=== PATIENT | female | born 1965 | race Caucasian/White ===

== ENCOUNTER → 2024-01-28 09:41 | Outpatient (CLI) | payer OTHER, SELFPAY ==
--- NOTE | 2024-01-28 10:10 | EKG_ITS ---
[facility] [address] [address] Test Date: 2024-01-28 Pat Name: Anayeli Paul Department: [facility] Room: Gender: Female Senior Portfolio Manager: MARIAH : 1965 Requested By: Order Number: [id number] Reading MD: Cosme Wilson MD Measurements Intervals [place] Rate: 76 P: 10 OR: 146 QRS: -4 QRSD: 124 T: 28 QT: 422 QTc: 474 Interpretive Statements Normal sinus rhythm Nonspecific intraventricular conduction delay Minimal voltage criteria for LVH, may be normal variant ( Khai product ) Electronically Signed On 01-28-2024 13:36:25 PDT by Cosme Wilson MD
[2024-01-28 11:20] LABS: Add Manual Diff / Slide Review NO; Basophils Absolute Auto 0 /uL (0-100); Basophils Percent Auto 0.7 % (0-2); Eosinophils Absolute Auto 100 /uL (0-450); Hematocrit 34.2 % (36-46); Hemoglobin 11.5 g/dL (12.0-16.0); Lymphocytes Absolute Auto 1100 /uL (1100-4500); Lymphocytes Percent Auto 16.1 % (25-40); Mean Corpuscular HGB Conc 33.7 % (30-36); Mean Corpuscular Hemoglobin 29.9 PG (26-34); Mean Corpuscular Volume 88.8 fL (80-100); Monocytes Absolute Auto 400 /uL (0-900); Monocytes Percent Auto 6.2 % (3-14); Neutrophils Absolute Auto 5300 /uL (1500-7000); Platelet Count 274 X10^3/uL (150-400); Red Blood Cell Count 3.85 X10^6/uL (4.0-5.2); Red Cell Distribution Width 13.5 % (11.6-14.8); White Blood Cell Count 7.1 X10^3/uL (4.5-11.0)
[2024-01-28 11:45] LABS: Hemoglobin A1C% w Est Avg Glu 6.7 % (4.0-6.0)
[2024-01-28 13:23] LABS: Albumin 3.8 g/dL (3.5-5.0); BUN Creatinine Ratio 16.7 (6-22); Blood Urea Nitrogen 24 mg/dL (7-17); Calcium 9.2 mg/dL (8.4-10.2); Carbon Dioxide 26 mmol/L (22-32); Chloride 103 mmol/L (98-107); Estimated Glomerular Filt Rate 42 mL/min (>60); Glucose 169 mg/dL (70-100); HEMOLYSIS < 15 (0-50); Potassium 5.2 mmol/L (3.4-5.1); Sodium 139 mmol/L (137-145)
[2024-01-28 16:12] LABS: Vitamin D 25 Hydroxy (D3) 14.2 ng/mL (30.0-100.0)
== END ==
PROVIDERS: Referring Provider Orthopaedic Surgery Adult Reconstructive Orthopaedic Surgery; Visit Provider Orthopaedic Surgery Adult Reconstructive Orthopaedic Surgery
DX: Z01.818 Encounter for other preprocedural examination (principal); E55.9 Vitamin D deficiency, unspecified; R77.0 Abnormality of albumin; R73.9 Hyperglycemia, unspecified; Z01.812 Encounter for preprocedural laboratory examination
CPT/HCPCS: 36415; 80048; 82040; 82306; 83036; 84134; 85025; 93005; 93010

== ENCOUNTER 2024-04-20 09:00 | Inpatient (IN) | payer OTHER, SELFPAY ==
[2024-04-11 11:55] VITALS: BMI 50.5
[2024-04-18] VITALS (16 sets, daily range): BP systolic 122–149; BP diastolic 45–72; PULSE 58–75; RESP 13–24; TEMP 36.3–37.6; O2SAT 93–100; BMI 50.5
--- NOTE | 2024-04-18 | DI.RAD.S_ITS ---
PROCEDURE: XR KNEE LT 1TO2V INDICATIONS: INNER OP TECHNIQUE: 2 view(s) of the knee acquired. COMPARISON: [facility], CR, XR KNEE LT 1TO2V, 04/18/2024, 16:59. FINDINGS: Bones: Patient is status post left knee joint arthroplasty. Stable appearance of the left distal and lateral femoral plate screw fixation hardware. Hardware components are in expected positions. Visualized bony structures are intact. Soft tissues: Overlying postoperative changes are noted. IMPRESSION: Expected post-operative appearance of left knee arthroplasty. Lateral distal femur plate and screw fixation appears stable without malfunction. Dictated by: Inocencio Robb M.D. on 04/19/2024 at 16:42 Approved by: Inocencio Robb M.D. on 04/19/2024 at 16:44
--- NOTE | 2024-04-18 07:38 | DI.RAD.S_ITS ---
PROCEDURE: XR KNEE LT 1TO2V INDICATIONS: TKA TECHNIQUE: 2 views of the knee were acquired. COMPARISON: None. FINDINGS: Bones: Intraoperative imaging submitted ORIF plate and screw fixation distal femur fracture with tibial plateau prosthesis, articulating surfaces in grossly normal alignment on these 2 intraoperative fluoroscopic views. Soft tissues: Grossly unremarkable IMPRESSION: ORIF changes as above Dictated by: Earnest Summers M.D. on 04/19/2024 at 8:16 Approved by: Earnest Summers M.D. on 04/19/2024 at 8:17
[2024-04-18] MEDS: MELOXICAM 7.5 MG TABLET 15 MG PO (12:24)
[2024-04-18] MEDS: ACETAMINOPHEN 325 MG TABLET 975 MG PO (12:24)
--- NOTE | 2024-04-18 12:38 | PM.PREOP ---
Pre-operative Note Interval Note History & Physical reviewed/Exam performed by Physician: Yes Changes to H&P: No
[2024-04-18] MEDS: CEFAZOLIN VIAL 3 GM in SODIUM CHLORIDE 0.9% 100 ML IV ×2 (13:59→17:12)
[2024-04-18] MEDS: TRANEXAMIC ACID 1,000 MG VIAL 1000 MG INJ ×2 (13:59→17:26)
--- NOTE | 2024-04-18 14:22 | SUR.OPER ---
Supine on padded OR bed. Pillow under head, arms secured on padded armboards <90 degree abduction. Safety belt across torso. Non-operative leg secured with tape over blanket over lower leg. Operative leg secured in Yuval. Foam padded brace at thigh of operative leg.
[2024-04-18] MEDS: ROPIVACAINE/EPI/CLONIDINE/KET 50 ML SYRINGE INJ (14:30)
[2024-04-18] MEDS: SODIUM CHLORIDE 0.9% 1,000 ML 84 ML IV (16:18)
[2024-04-18] MEDS: CEFAZOLIN 2 GM/100 ML PREMIX 100 ML IV (17:11)
[2024-04-18] MEDS: VANCOMYCIN 1,000 MG VIAL 1000 MG TOP (17:42)
[2024-04-18] MEDS: INSULIN REGULAR 100 UNIT/ML 3 ML VIAL IV (18:37)
--- NOTE | 2024-04-18 18:38 | PM.OP.1 ---
Operative Date/Time/Diagnoses Date of procedure: 04/18/24 Pre-op diagnosis: Left knee osteoarthritis Post-op diagnosis: same Procedure & Clinicians Procedure: Left total knee arthroplasty Placement of lateral distal femoral locking plate for prophylactic fixation for prevention of femoral fracture due to femoral notching in the anterior cortex Same procedure as scheduled: No Surgeon: Wilmar Blackman Electrical Wiring Lineman: Tracy Branham Anesthesia Type: General and Local Operative Notes Estimated Blood Loss (mL): 600 Procedure in detail: Left Gap-Balanced Hipolito Persona Medial-Congruent Primary Total Knee Arthroplasty Implants: Size 11 Cruciate Retaining Femoral Component Size F uncemented Tibial Component Size 10 Medial Congruent Polyethylene Insert Unresurfaced Patella Six hole lateral Alejandro and Nephew distal femoral locking plate Stainless steel Evos cerclage cable Procedure Summary: This 58-year-old female patient had severe left knee arthritis and a BMI of 50. I went through an extensive preoperative optimization period with her. She had had a hospitalization with an acute kidney injury this spring and prior to moving forward with surgery I ensured that her anemia and acute kidney injury had resolved. We discussed at length her elevated risk for complications related to her BMI. She understood these risks and wished to proceed with surgical management with that understanding. Intraoperatively today I sized her femur for a size 12, however this is the biggest size in our system and it was unavailable at this facility so I attempted to utilize a size 11. I thought that the cut would come out the anterior cortex appropriately however it notched significantly. I therefore placed a prophylactic plate with 3 screws above the notch and locking screws below. Her motion was very limited preoperatively and even with fairly aggressive cuts, +2 on the distal femur and +6 on the proximal tibia, she was still tight in extension and I used the smallest polyethylene insert available. Because of her high BMI and young age had intended to utilize uncemented fixation and still used uncemented fixation on the tibia despite the notch in her femur. Following placement of the plate in her femur I utilized cemented fixation and replaced the portion of the notch cut out of the anterior femur in order to use that as bone graft. That was held in place with a cerclage cable. I had already planned to utilize a incisional wound VAC and postoperative antibiotics given her high risk for wound breakdown given her body habitus. In addition to this I utilized intra wound vancomycin and placed nicko over the Dermabond to provide additional reinforcement. I will not modify her postoperative protocol given the notch cut and we will still have her aggressively work on range of motion as she had very severe stiffness preoperatively Procedure in Detail: This patient was seen preoperatively and evaluated for knee pain which was refractory to numerous nonoperative treatment modalities. Their pain correlated with radiographic changes demonstrating significant degeneration in the knee joint. The risks and benefits of continued nonoperative management versus operative management were discussed at length and all of the patient?s questions were answered. Additional educational materials providing further details beyond our discussion in clinic were provided via a publicly available patient education video which included the incidence of medical complications associated with total knee arthroplasty, reasons for revision following total knee arthroplasty, and patient satisfaction rates following total knee arthroplasty. That video can be accessed at [email or web address] . With this understanding of the risks inherent to the procedure, the patient elected to move forward with operative management. Following preoperative optimization, the patient was scheduled for surgery. The patient was met in the preoperative holding area the day of the procedure and all questions were answered. The patient?s nares were swabbed with betadine in order to decolonize them from MRSA. Informed consent was signed and the left limb was marked with indelible ink.? The patient was brought back to the operating room where anesthesia was induced. The patient was transferred to the operating table and all bony prominences were padded. The operative site was prepped and draped in the usual sterile fashion. A second prep stick was utilized following drape placement. The incision was marked corresponding to the medial aspect of the tibial tubercle and the patella. Ioban was wrapped circumferentially around the knee. Prior to incision, tranexamic acid and cefazolin were administered. Templating images were displayed. A timeout procedure was performed verifying the patient?s identity, medical comorbidities, allergies, relevant medications, anesthesia type and the surgical plan. All present were in agreement. The assistance of a physician bilingual executive assistant was required for positioning, room setup, soft tissue retraction and wound closure. Without this assistance, the procedure would have been significantly more challenging and time consuming.?? The tourniquet was inflated prior to incision. I made an anterior incision over the knee, dissected through the subcutaneous tissues and identified the lateral border of the VMO. Medial and lateral soft tissue flaps were developed. A medial parapatellar arthrotomy was performed ensuring that adequate capsular tissue would remain for closure at the conclusion of the procedure. The hip was brought into extension and the medial soft tissues were released off the joint line of the tibia. Tissue overlying the distal anterior femur was released to allow for later assessment for anterior notching but left in place. A portion of the retropatellar fat pad was excised while protecting the patellar tendon. The patella was everted. The patella was not resurfaced. Osteophytes were excised and a lateral facetectomy was performed. The patella was released from its everted position.?? I flexed the knee to 90 degrees and placed retractors to allow access to the notch. An opening reamer was used to gain access to the femoral canal and an intramedullary veronica was introduced into the canal. Diaphyseal fit was obtained in order to allow a distal femoral resection at 5 degrees relative to the anatomic axis, thereby aiming to achieve mechanical alignment of the eventual implant. A +2 resection was planned and assessed using an deloris wing. I then made the cut using a sagittal saw. This provided additional access to the femoral notch. The ACL and PCL were excised. Retractors were placed on the lateral and medial tibia. I hyperflexed the knee while externally rotating it to sublux the tibia anteriorly. I placed a PCL retractor posteriorly and used this to provide additional anterior subluxation. The remainder of the PCL root was released. An intramedullary reamer was used in the ACL footprint to provide access to the tibial canal. An extramedullary guide was positioned to allow a resection perpendicular to the anatomic and mechanical axes of the tibia, thereby aiming to achieve mechanical alignment of the eventual implant. A +4 resection off the medial tibia was planned and the tibial cutting jig was pinned in place. I evaluated the cut depth, varus-valgus alignment and slope of the planned tibial resection and deemed them satisfactory. I cut the tibia with a sagittal saw while using retractors to protect the MCL, patellar tendon, and posterolateral structures.? The knee was repositioned in extension and the Fuzion soft tissue balancing gauge was introduced. This demonstrated that there was equal tension in the medial and lateral compartments of the knee with the knee in full extension and no additional soft tissue releases were necessary. I was not able to achieve full extension however so I replaced the tibial cut block and cut an additional 2 mm of tibia. This was still tight however I noted there were extremely large osteophytes posteriorly on the femur and anticipated that this would further loosen up the extension gap to allow full extension. When 60 pounds of force was applied to the Fuzion device, the extension gap opened to 10 mm. I moved the knee into 90 degrees of flexion, and the Fuzion device was recalibrated by removing a 9 mm alysha to allow assessment of the flexion gap. The Fuzion was placed perpendicular to the resected surface of the tibia and the resected surface of the distal femur. Sixty pounds of traction was applied to match the tension of the extension gap. This externally rotated the femur to -3 degrees. Pins were placed in the 10 mm holes. The measured resection guide was placed over the pins to allow sizing. Appropriate sizing was determined and a 4-in-1 block was placed. This was double checked using the Fuzion device to ensure that it would open to an equal distance as the extension gap when the same amount of force was applied. The Fuzion block was also used to assess flexion gap symmetry. An deloris wing was used to ensure there would be no anterior notching. Retractors were placed to protect the soft tissues during resection. Captured cuts were performed with a sagittal saw for the anterior and posterior femur as well as the corresponding chamfers.? Trial components were placed and the construct was assessed. Range of motion was assessed by ensuring the knee could achieve full extension and assessing maximum passive knee flexion by elevating the femur and allowing the heel to passively fall towards the buttock. Gap symmetry was assessed by stressing the medial and lateral compartments in both extension and flexion. Laxity was assessed in both extension and flexion and the polyethylene trial was adjusted with shims as necessary. Patellar tracking was assessed with knee flexion. Once satisfied with the construct, I moved forward with implant insertion. Lug holes were drilled in the femur and the tibia was prepped ensuring appropriate sizing and rotation relative to the tibial tubercle.?? The bony ends were irrigated and cement was prepared. Portions of the anterior chamfer cut were utilized as cement restrictors in the femur and tibia where intramedullar rods had been utilized. Cement was placed on the entirety of the undersurface of both the tibial and femoral components. Cement was placed onto the dry tibia and pressurized into the cancellous bone. I impacted the tibial component into place. Cement was removed. The tibia was reduced underneath the femur and placed cement onto the dry surface of the resected femur. I placed the femoral component as well as the intended polyethylene trial. Cement was removed from around the femur. I brought the knee into extension and manually pressurized the construct by pushing on the heel while the cement dried. The knee was bathed in a dilute mixture of betadine and peroxide. A mixture of Ropivacaine, Epinephrine, Clonidine and Toradol was infiltrated throughout the soft tissues into structures including the VMO, patellar tendon, quadriceps tendon, MCL and femoral periosteum. A low adductor canal block was also performed using this mixture unless one had been placed preoperatively by anesthesia. The knee was copiously irrigated with pulse lavage. Once cement had been allowed to dry the knee was again trialed. Range of motion was assessed by ensuring the knee could achieve full extension and assessing maximum passive knee flexion by elevating the femur and allowing the heel to passively fall towards the buttock. Gap symmetry was assessed by stressing the medial and lateral compartments in both extension and flexion. Laxity was assessed in both extension and flexion and the polyethylene trial was adjusted with shims as necessary. Patellar tracking was assessed with knee flexion. The tourniquet was let down and the polyethylene trial was removed. I inspected the knee inspected for excess cement and any residual bleeding. Once hemostasis was achieved I inserted the final polyethylene and ensured appropriate engagement of the dovetail locking mechanism.?? The arthrotomy was closed with absorbable interrupted suture ensuring that this extended to the top of the arthrotomy. This was backed up with running barbed suture throughout the arthrotomy. The skin was closed with 2-0 and 3-0 sutures. Surgical glue was applied and a soft dressing was placed.?The sponge, instrument and needle counts were reported as being correct at the end of the case.??No obvious complications occurred. The patient was transferred from the operating table back to a stretcher. The patient emerged from anesthesia without difficulty and was taken to the PACU in a stable condition.? Plan for aftercare: Weightbearing as tolerated Aspirin 81 twice per day for DVT prophylaxis No NSAIDs given kidney issues Sliding scale insulin given diabetes Wound check with myself in 2 weeks for staple removal Cefadroxil 500 mg twice per day for periprosthetic joint infection prophylaxis Multimodal pain regimen with no IV opioids ordered Anticipate discharge home tomorrow Detailed postoperative instructions available at [email or web address]
--- NOTE | 2024-04-18 19:05 | SUR.PHASEI ---
Pt transferred to floor by Ernst PERALTA. Belongings delivered including walker, CPAP bag, on2 white bag and one personal bag.
[2024-04-18] MEDS: LACTATED RINGERS 1,000 ML 100 ML IV (19:07)
[2024-04-18] MEDS: OXYCODONE IR 5 MG TABLET PO (19:39)
[2024-04-18] MEDS: ACETAMINOPHEN 325 MG TABLET 650 MG PO (19:39)
[2024-04-18] MEDS: ATORVASTATIN 20 MG TABLET 80 MG PO (20:38)
[2024-04-18] MEDS: HYDRALAZINE 10 MG TABLET 20 MG PO (20:38)
[2024-04-18] MEDS: LOPERAMIDE 2 MG CAPSULE PO (20:40)
[2024-04-18] MEDS: DOCUSATE 100 MG CAPSULE PO (20:41)
[2024-04-18] MEDS: OXYBUTYNIN 5 MG TABLET PO (20:41)
[2024-04-18] MEDS: ASPIRIN EC 81 MG TABLET PO (20:41)
--- NOTE | 2024-04-18 21:20 | P.PN_ITS ---
Subjective Subjective Interval history: I came by to check on Anayeli postoperatively. I explained the notching in her anterior femur that occurred during the case in the actions I took to prevent it propagating into a fracture. I showed her her x-rays and pointed out the plate and screws as well as the cerclage cable that were placed in order to protect her bone. During my examination she was resting comfortably in no acute distress. She had intact sciatic nerve function and a well-perfused foot and a clean dressing. Her pain was well-controlled. * Weightbearing as tolerated * Aspirin DVT prophylaxis * Baseline diabetes medications and sliding scale * Cefadroxil 500 mg twice per day for periprosthetic joint infection prophylaxis * Anticipate mobilization and discharge home tomorrow * No NSAIDs ordered given her kidney issues Exam Vital Signs (past 8 hours): - 04/18/24 18:19 04/18/24 18:25 04/18/24 18:30 Temperature 99.6 F Pulse Rate 75 70 70 Respiratory Rate 15 13 14 Blood Pressure 132/66 126/61 133/72 Pulse Oximetry 93 95 96 Oxygen Delivery Method Room Air Nasal Cannula Nasal Cannula Oxygen Flow Rate 2 2 04/18/24 18:35 04/18/24 18:40 04/18/24 18:45 Temperature 98.6 F Pulse Rate 70 69 72 Respiratory Rate 16 16 18 Blood Pressure 139/57 L 135/56 L 122/67 Pulse Oximetry 96 96 96 Oxygen Delivery Method Nasal Cannula Nasal Cannula Nasal Cannula Oxygen Flow Rate 2 2 2 04/18/24 18:50 04/18/24 19:00 04/18/24 20:38 Temperature 97.4 F L Pulse Rate 68 66 Respiratory Rate 14 Blood Pressure 125/47 L 141/45 H Pulse Oximetry 94 Oxygen Delivery Method Nasal Cannula CPAP Oxygen Flow Rate 2 Oxygen Delivery Method Nasal Cannula,CPAP Oxygen Flow Rate 2 COUNTS INCLUDE 234 BEDS AT THE [facility] Medical History (Updated 04/11/24 @ 12:21 by Jacinda Kowalski RN) Recurrent UTI Stage 3b chronic kidney disease COVID-19 virus infection (02/2020) ADHD Bipolar 1 disorder Depression Easy bruisability Osteoarthritis Spinal stenosis History of tumor Arthritis Diabetes IBS (irritable bowel syndrome) HLD (hyperlipidemia) HTN (hypertension) NOHELIA on CPAP Surgical History (Updated 02/06/21 @ 13:23 by Jacinda Kowalski RN) History of bladder suspension procedure Hx of arthroscopy of right knee Hx of Achilles tendon repair Hx of repair of right rotator cuff Hx of repair of left rotator cuff History of hysterectomy Social History household members: spouse Smoking Status: Former smoker alcohol intake: former Assessment & Plan Time-Based Coding :: [TOTAL MINUTES] spent with patient and on the chart (including review of chart, obtaining history, exam, reviewing outside data, placing orders, documenting exam and treatment plan, and counseling patient) on [DATE]. Quality VTE Deep Vein Thrombosis/Pulmonary Embolism Present on Admission: No
[2024-04-18] MEDS: INSULIN GLARGINE 100 UNIT/ML 3ML PEN 45 UNIT SUBCUT (21:29)
[2024-04-18] MEDS: INSULIN LISPRO 100 UNIT/ML 3ML VIAL SUBCUT (21:29)
[2024-04-18] MEDS: OXYCODONE IR 10 MG TABLET PO (22:54)
[2024-04-19] MEDS: CEFAZOLIN VIAL 3 GM in SODIUM CHLORIDE 0.9% 100 ML IV ×2 (00:49→08:26)
--- NOTE | 2024-04-19 00:59 | PC.NURSE ---
head chef: Patient is AxOx4, VSS, SpO2 97% on RA. Wears CPAP at night. Pain is well controlled with ordered pain medications, ice pack placed. L knee covered with KARLO drsg & SWATHI wrap is CDI. CMS intact. 2 PA to BSC w/ FWW & gait belt. Voided 200cc @ midnight, purewick in place. Oriented to call-light, plan of care ongoing.
[2024-04-19 01:50] VITALS: BP 139/59; PULSE 65; TEMP 35.5; O2SAT 100
[2024-04-19] MEDS: OXYCODONE IR 10 MG TABLET PO ×6 (03:09→21:43)
[2024-04-19] MEDS: ACETAMINOPHEN 325 MG TABLET 650 MG PO ×3 (03:09→18:43)
[2024-04-19 04:56] LABS: Hematocrit 25.9 % (36-46); Hemoglobin 8.6 g/dL (12.0-16.0)
[2024-04-19 05:50] VITALS: BP 120/42; PULSE 66; RESP 20; TEMP 35.8; O2SAT 98
--- NOTE | 2024-04-19 07:51 | PM.PNPO.1 ---
Subjective Subjective Date Patient Seen: 04/19/24 Time Patient Seen: 07:51 Interval history: Knee pain is [id number]. No shortness of breath or chest pain. No nausea or vomiting. She was able to get up last night and use bathroom. will be home to assist her. Exam Vital Signs (past 8 hours): - 04/19/24 01:50 04/19/24 05:50 Temperature 96 F L 96.4 F L Pulse Rate 65 66 Respiratory Rate 20 Blood Pressure 139/59 L 120/42 L Pulse Oximetry 100 98 Oxygen Flow Rate 0 1.5 Fraction of Inspired Oxygen 28 SaO2/FiO2 Ratio 346 Oxygen Delivery Method Nasal Cannula Oxygen Flow Rate 1.5 Narrative Exam Narrative: 58-year-old female resting comfortably in bed in no apparent distress. Knee dressing is clean, dry and intact. Motor functions intact bilateral lower extremities. Sensation grossly intact to light touch bilateral lower extremities. Const General: cooperative and comfortable Nutritional Appearance: obese (BMI 50.5) Orientation: alert Resp Effort & Inspection: normal respiratory effort and able to speak in complete sentences Objective Labs 04/19/24 04:50 Labs: Laboratory Results - last 24 hr 04/19/24 04:50 Hgb 8.6 L Hct 25.9 L PFSH Medical History Recurrent UTI Stage 3b chronic kidney disease COVID-19 virus infection (02/2020) ADHD Bipolar 1 disorder Depression Easy bruisability Osteoarthritis Spinal stenosis History of tumor Arthritis Diabetes IBS (irritable bowel syndrome) HLD (hyperlipidemia) HTN (hypertension) NOHELIA on CPAP Surgical History History of bladder suspension procedure Hx of arthroscopy of right knee Hx of Achilles tendon repair Hx of repair of right rotator cuff Hx of repair of left rotator cuff History of hysterectomy Social History household members: spouse Smoking Status: Former smoker alcohol intake: former Assessment & Plan Post-op Postoperative Procedures: Procedures Operation Date: 04/18/24 13:45 Actual Procedure Side Surgeon p Total Knee Arthroplasty with distal femur ORIF Left Wilmar Blackman MD Postoperative day: 1 Postoperative status narrative: Postop anemia due to blood loss during surgery Postoperative plan narrative: Status post left total knee arthroplasty with placement of lateral distal femoral locking plate for prophylactic fixation for prevention of femoral fracture due to femoral notching in the anterior cortex. Aspirin 81 mg b.i.d. for DVT prophylaxis. Weightbearing as tolerated No NSAIDs given her kidney disease Sliding scale insulin Follow up 2 weeks outpatient clinic Cefadroxil 500 mg b.i.d. for periprosthetic joint infection prophylaxis Multimodal pain management Disposition possibly home today or tomorrow Quality VTE Deep Vein Thrombosis/Pulmonary Embolism Present on Admission: No
[2024-04-19 08:00] VITALS: BP 114/47; PULSE 68; RESP 20; TEMP 35.8; O2SAT 93
[2024-04-19] MEDS: INSULIN LISPRO 100 UNIT/ML 3ML VIAL 30 UNIT SUBCUT ×3 (08:13→17:10)
[2024-04-19] MEDS: INSULIN LISPRO 100 UNIT/ML 3ML VIAL SUBCUT (08:13)
[2024-04-19] MEDS: calcitrioL 0.25 MCG CAPSULE PO (08:14)
[2024-04-19] MEDS: ASPIRIN EC 81 MG TABLET PO ×2 (08:14→20:24)
[2024-04-19] MEDS: VIT C/E/ZN/COPPR/LUTEIN/ZEAXAN CAPSULE 2 CAP PO (08:15)
[2024-04-19] MEDS: FLUoxetine 20 MG CAPSULE 40 MG PO (08:15)
[2024-04-19] MEDS: DOCUSATE 100 MG CAPSULE PO ×2 (08:15→20:25)
[2024-04-19] MEDS: EZETIMIBE 10 MG TABLET PO (08:15)
[2024-04-19] MEDS: OXYBUTYNIN 5 MG TABLET PO ×3 (08:15→20:24)
[2024-04-19] MEDS: FUROSEMIDE 20 MG TABLET PO (08:25)
--- NOTE | 2024-04-19 09:30 | PT.IIE ---
Current Diagnoses Unilateral primary osteoarthritis, left knee (04/18/24) Surgery Performed Operation Date: 04/18/24 13:45 Actual Procedures p Total Knee Arthroplasty with distal femur ORIF(Left) - Wilmar Blackman MD Surgical History (Last Reviewed 04/19/24 @ 07:52 by Jim Gray PA-C) History of bladder suspension procedure History of hysterectomy Hx of Achilles tendon repair Hx of arthroscopy of right knee Hx of repair of left rotator cuff Hx of repair of right rotator cuff Medical History (Last Reviewed 04/19/24 @ 07:52 by Jim Gray PA-C) ADHD Arthritis Bipolar 1 disorder COVID-19 virus infection (02/2020) Depression Diabetes Easy bruisability History of tumor HLD (hyperlipidemia) HTN (hypertension) IBS (irritable bowel syndrome) NOHELIA on CPAP Osteoarthritis Recurrent UTI Spinal stenosis Stage 3b chronic kidney disease Physical Therapy Inpatient Evaluation/Re-Eval M1 PT/OT-IP Prior Functional Status Start: 04/19/24 12:47 Freq: NEEDED Status: Active Protocol: Document 04/19/24 09:30 AB (Rec: 04/19/24 13:04 AB [id number]) Medical Review Prior Functional Status Medical History Reviewed Yes Communication able to make needs known Mobility and Gait pt stated that she was modified independent with all mobilities and ambulation without AD indoors but occasionally uses a SPC depending on knee pain; uses SPC all the time for outdoor mobility; spouse stated that pt was needing assist for sit to stand from a regular chair but able to get up by herself when using her lift chair. pt has been using her lift chair for ~ months Activities of Daily Living and IADL's per OT note: Pt able to do but had lots of pain. Social History Household Members spouse Living Arrangements House Number of Floors (Floors) One Floor Number of Stairs To Enter/Railing? 2 platform steps to neter the house Home Environment Standard Height Toilet,Walk in Shower,Bidet Home Equipment Front Wheel Walker,Straight Cane,Shower Seat with Backrest ,Hand Held Shower,Retirement Assistant,Lift Recliner Additional Social History Comment Pt has an adjustable bed. M2 PT-IP Current Condition Start: 04/19/24 12:47 Freq: NEEDED Status: Active Protocol: Document 04/19/24 09:30 AB (Rec: 04/19/24 13:04 AB [id number]) Physical Therapy Current Condition Current Condition Evaluation Date 04/19/24 Treatment Diagnosis s/p L TKA; difficulty in walking Onset Date 04/18/24 M3 PT-IP Subjective Start: 04/19/24 12:47 Freq: NEEDED Status: Active Protocol: Document 04/19/24 09:30 AB (Rec: 04/19/24 13:04 [id number]) Subjective Physical Therapy Visit Type Type Initial Evaluation Visit Start Time 09:30 Visit Stop Time 10:15 Number of BUNCH BREAKER Visits 0 Physical Therapy Visit Comments Patient Comments agreeable to do PT Therapy Pain Assessment Pain When Pain Assessed At Rest Pain Present Pain Present Pain Reported Location Left Knee Intensity 2 Scale Used Numeric (0 - 10) Pain Management Techniques Apply Cold,Distraction, Elevation,Modification of Treatment,Re-positioning, Timing of Activity with Medications M4 PT-IP Mobility and Gait Start: 04/19/24 12:47 Freq: NEEDED Status: Active Protocol: Document 04/19/24 09:30 AB (Rec: 04/19/24 13:04 [id number]) PT-Transfer Assessment Sit to and From Stand Sit to and from Stand Maximum Assistance,1 Person Assistance,2 Person Assistance ,Use of Upper Extremities Equipment Transfer Assistive Device Gait Belt,Front Wheeled Walker Orthotic/Prosthetic Devices or Brace: No Transfers Transfer Destination Chair Transfer Technique Stand Step Pivot Transfer Ability Level of Assist Moderate Assistance,1 Person Assistance,Use of Upper Extremities Comments Mobility Comments pt sitting on bedside commode and OT in room. spouse in room as well. PT took over pt's care. obtained PLOF and home set up. BP sittin/83. pt completed sit to stand from bedside commode max A x 2 and max cues. able to take a few steps to transfer to chair using FWW mod A and cues ~ 2 ft. pt sat on chair. c/o lightheadedness. BP: 121/41. pt rested. BP rechecked after ~ 2 min: 117/50. educated pt on sit<>stand techniques. completed sit to stand from chair max Ax 1-2 and max cues. pt was only able to stand and has to sit back down due to c/o lightheadedness. BP checked seated: 91/40. positioned pt on the chair. LE elevated. BP rechecked: 111/49. nurse aware. set up caregiver training at ~ 130 pm today. Gait Assessment Gait Gait Assistance Required: Moderate Assistance Distance (Feet) 2 Able to Maintain Weight Bearing Status Yes During Gait Assistive Devices Assistive Device Gait Belt,Front Wheeled Walker Orthotic/Prosthetic Devices or Brace: No Gait Deviations General Gait Pattern Antalgic,Decreased Stride Length,Decreased Feet Clearance,Step-to Gait Factors Limiting Gait Function Factors Limiting Gait Function Decreased Activity Tolerance, Decreased Strength,Difficulty Following Directions,Limited Range of Motion,Pain,Poor Balance,Poor Safety Awareness PT-Balance Assessment Sitting Balance and Reactions Static Sitting Balance Ability Good Dynamic Sitting Balance Ability Fair Standing Balance and Reactions Static Standing Balance Ability Fair Dynamic Standing Balance Ability Fair Device Used FWW M5 PT-IP Objective Assessments Start: 04/19/24 12:47 Freq: NEEDED Status: Active Protocol: Document 04/19/24 09:30 AB (Rec: 04/19/24 13:04 [id number]) Orientation Orientation/Cognition Level of Alertness Alert Orientation Name,Place,Situation Language Function Ability No Deficits Noted Safety Awareness Decreased Safety Awareness Memory Description No Deficits Noted Strength Lower Extremity Strength Assessment Bilaterally Impaired Hip 3+/5 Knee 3+/5 Sensation Assessment Sensation Gross Sensation WNL Muscle Tone Muscle Tone WNL Yes M6 PT-IP Treatment Start: 04/19/24 12:47 Freq: NEEDED Status: Active Protocol: Document 04/19/24 09:30 AB (Rec: 04/19/24 13:04 [id number]) Physical Therapy Treatment Education Education Provided Precautions,Weight Bearing Status,Post-Op Packet,Safety M7 PT-IP Assessment and Plan Start: 04/19/24 12:47 Freq: NEEDED Status: Active Protocol: Document 04/19/24 09:30 AB (Rec: 04/19/24 13:04 [id number]) PT Summary Assessment and Plan Potential Rehabilitation Potential Fair Status of Condition at Evaluation Evolving Summary Impairments Pain,ROM,Strength,Balance, Coordination,Sensation,Tone, Cognition,Bed Mobility, Transfers,Gait,Activity Tolerance Assessment Summary pt is a 58 y/o F s/p L TKA POD 1. pt is WBAT on LLE. pt requiring max A x 1-2 for sit to stand and was only able to take a few steps to transfer using FWW mod A. c/o lightheadedness with BP decreased to 91/40 in standing from 120/83 in sitting. pt plans to go home with spouse to assist. caregiver training set up this afternoon at 130pm . will continue to assess progress. Goals Bed Mobility Goal Independent Transfer Goal Independent,Front Wheeled Walker Gait Goal Independent,Front Wheel Walker Gait Distance 150 Other Goals up/down 2 platform steps using FWW CGA Days to Meet Goals 5 Frequency of Treatment Frequency Of Treatment Twice a Day Treatment Plan Physical Therapy Treatment Plan Bed Mobility Training,Transfer Training,Gait Training, Therapeutic Exercise,Balance Retraining,Post Op Education, Discharge Planning,Hot or Cold Pack,Neuromuscular Re-ed, Coordination Retraining,Manual Therapy Weight Bearing Status Weight Bearing Status Weight Bear as Tolerated Allowed Weight Bearing Amount (enter % LLE WBAT or #) (%) Recommendations To Nursing Amount of Assist Needed 2 Person Assist Discharge Recommendations PT Discharge Recommendations Home with 24/11 Assist Available,Home Health Transportation Needs at Discharge Private Vehicle,Wheelchair/ Cabulance
--- NOTE | 2024-04-19 10:37 | OT.IP.EVAL ---
Current Diagnoses Unilateral primary osteoarthritis, left knee (04/18/24) Surgery Performed Operation Date: 04/18/24 13:45 Actual Procedures p Total Knee Arthroplasty with distal femur ORIF(Left) - Wilmar Blackman MD Past Medical History (Last Reviewed 04/19/24 @ 07:52 by Jim Gray PA-C) ADHD Arthritis Bipolar 1 disorder COVID-19 virus infection (02/2020) Depression Diabetes Easy bruisability History of tumor HLD (hyperlipidemia) HTN (hypertension) IBS (irritable bowel syndrome) NOHELIA on CPAP Osteoarthritis Recurrent UTI Spinal stenosis Stage 3b chronic kidney disease Surgical History (Last Reviewed 04/19/24 @ 07:52 by Jim Gray PA-C) History of bladder suspension procedure History of hysterectomy Hx of Achilles tendon repair Hx of arthroscopy of right knee Hx of repair of left rotator cuff Hx of repair of right rotator cuff Occupational Therapy Inpatient Evaluation/Re-Eval M1 PT/OT-IP Prior Functional Status Start: 04/19/24 10:21 Freq: NEEDED Status: Active Protocol: Document 04/19/24 10:22 [facility] (Rec: 04/19/24 10:37 [facility] [id number]) Medical Review Prior Functional Status Communication I Mobility and Gait Use of cane outdoors and at times inside. Activities of Daily Living and IADL's Pt able to do but had lots of pain. Social History Household Members spouse Living Arrangements House Number of Floors (Floors) One Floor Number of Stairs To Enter/Railing? 2 platform steps . Home Environment High Toilet,Walk in Shower Home Equipment Front Wheel Walker,Straight Cane,Shower Seat with Backrest ,Hand Held Shower,Project Director,Lift Recliner Additional Social History Comment Pt has an adjustable bed. M2 OT-IP Current Condition Start: 04/19/24 10:21 Freq: Status: Active Protocol: Document 04/19/24 10:22 [facility] (Rec: 04/19/24 10:37 [facility] [id number]) Occupational Therapy Current Condition Current Condition Evaluation Date 04/19/24 Treatment Diagnosis S/P L TKA Diagnosis Onset Date 04/18/24 M3 OT- IP Subjective and Pain Start: 04/19/24 10:21 Freq: Status: Active Protocol: Document 04/19/24 10:22 [facility] (Rec: 04/19/24 10:37 [facility] [id number]) OT- Subjective Occupational Therapy Visit Type Type Initial Evaluation Visit Start Time 09:00 Visit Stop Time 10:15 Notes Split treatment from [id number] and [id number]. Occupational Therapy Visit Comments Patient Comments Pt agreed to try to use the BSC. Patient/Caregiver Goals TO go home. OT Pain Assessment Pain When Pain Assessed At Rest Pain Present Pain Present Pain Reported Location Left Knee Intensity 4 Scale Used Numeric (0 - 10) M4 OT- IP ADL's Start: 04/19/24 10:21 Freq: Status: Active Protocol: Document 04/19/24 10:22 [facility] (Rec: 04/19/24 10:37 [facility] [id number]) OT [id number] General Evaluation Self-Feeding Ability Independent OT ADL-Grooming General Evaluation Grooming Ability Standby Assistance Areas Needing Assistance Retrieving/Set-up of Grooming Items Comments OT Grooming Comments While seated with set-up. OT ADL-Oral Care General Eval Oral Care Ability Independent Comments Oral Care Comments While seated. OT ADL-Dressing General Eval Lower Body Dressing Ability Maximum Assistance Areas Needing Assistance Socks Comments OT Dressing Comments Educated to dress the LLE first and take out last. Spoke on LB dressing equipment. Pt' s to assist. OT ADL-Toileting General Evaluation Toileting Ability Maximum Assistance Areas Needing Assistance Manage Clothing Comments OT Toileting Comments Pt not able to urinate, needing assist for clothing management needs. Spoke of wet ones, use of pads, toilet paper aid to help increase overall independence with needs. OT ADL-Bathing Comments OT Bathing Comments At this time pt states to just sponge off. Suggested prior to showering at home to practice if able to get into the shower with the FWW. M5 OT- IP IADL's Start: 04/19/24 10:21 Freq: Status: Active Protocol: Document 04/19/24 10:22 [facility] (Rec: 04/19/24 10:37 [facility] [id number]) OT-Instrumental Activities of Daily Living Deficits IADL Deficits Identified Deficits Home Safety Awareness Awareness of Need for Assistance at Home Good Awareness Ability to Problem Solve Emergency Able to Problem Solve Situations Medication Management Medication Management No Deficits Identified Money Management Money Management No Deficits Identified Meal Preparation Meal Preparation Comments to assist. Group Home Supervisor Group Home Supervisor Comments to assist. M6 OT- IP Functional Cognition Start: 04/19/24 10:21 Freq: Status: Active Protocol: Document 04/19/24 10:22 [facility] (Rec: 04/19/24 10:37 [facility] [id number]) Cognitive Factors Limiting Selfcare Function Cognitive Ability Level of Alertness Alert Patient Orientation Name,Age,Birthday,Month,Date, Year,Day of Week,Place, Situation Attention Span Ability Capable of Focused Attention, Capable of Sustained Attention Ability to Follow Commands Able to Follow One Step Commands Cognitive Comments Cognitive Assessment Comments Pt able to follow commands well for ADL and mobility needs. OT- Vision and Hearing OT- Hearing Assessment OT- Hearing Assessment WFL OT- Vision Assessment Visual Acuity Glasses For Reading Visual Attentiveness WFL Occular Pursuits WFL M7 OT- IP Mobility and Balance Start: 04/19/24 10:21 Freq: Status: Active Protocol: Document 04/19/24 10:22 [facility] (Rec: 04/19/24 10:37 [facility] [id number]) OT- Bed Mobility Assessment Supine to Sit Supine to Sit Assist Moderate Assistance,Head of Bed Elevated,Bedrails OT-Transfer Assessment Sit to and From Stand Sit to and from Stand Maximum Assistance,2 Person Assistance Transfers Transfer Ability Moderate Assistance,2 Person Assistance Technique Transfer Destination Bed,Bedside Commode Transfer Technique Stand Step Pivot Devices Transfer Assistive Devices Gait Belt,Front Wheeled Walker Comments Mobility Comments MODA to assist to help get her LLE to the edge of the bed and assist to get her trunk forwards. Pt considering sleeping in the lift chair initially.MAX AX 2 to stand to the FWW and MODA X2 to transfer to the BSC. Suggested pt get a BSC as much easier to come to stand when able to push her arms on the armrests to come to stand. Pt's FWW has rubber bottom and suggested pt get gliders/ sliders for safety. OT- Balance Assessment Sitting Balance and Reactions Static Sitting Balance Ability Good Dynamic Sitting Balance Ability Good Standing Balance and Reactions Static Standing Balance Ability Fair Dynamic Standing Balance Ability Poor M8 OT- IP Objective Assessments Start: 04/19/24 10:21 Freq: Status: Active Protocol: Document 04/19/24 10:22 [facility] (Rec: 04/19/24 10:37 [facility] [id number]) OT Gross Range of Motion Upper Extremity Range of Motion Assessment Within Functional Limits OT Strength Upper Extremity Strength Assessment Within Functional Limits M9 OT- IP Assessment and Plan Start: 04/19/24 10:21 Freq: Status: Active Protocol: Document 04/19/24 10:22 [facility] (Rec: 04/19/24 10:37 [facility] [id number]) OT Summary Assessment and Plan Potential Rehabilitation Potential Good Analytic Complexity at Evaluation Low Summary OT Impairments Pain,Range of Motion,Strength, Balance,Functional Mobility, Grooming,Dressing,Toileting, Bathing,Toilet Transfers, Shower Transfers,Activity Tolerance Progress Towards Goals Slow Progress due to Pain,Slow Progress due to Medical Issues,Slow Progress due to Activity Tolerance Assessment Summary Pt low complexity and main barriers are pain, difficulty with transitions and BP dropping and feeling weak 132/ 44 at EOB and after getting to the BSC 115/49. O2 on RA at 92-98% and needing to take a few deep breaths. Pt has a very supportive to assist at home when medically stable. Pt already has outpt PT set-up. Goals Self-Feeding Goal Independent Grooming Goal Independent Dressing Goal Minimal Assistance Toileting Goal Minimal Assistance Bathing Goal Minimal Assistance Toilet Transfer Goal Standby Assistance Shower Transfer Goal Minimal Assistance Patient/Caregiver Education Goal Caregiver Independent Assisting Patient Days to Meet Goals 7 Frequency of Treatment Other frequency 5x/week Treatment Plan OT Treatment Plan ADL Training,Functional Mobility,Patient/Family Education,Discharge Planning Discharge Recommendations OT Discharge Recommendations Home with 24/11 Assist Available,Outpatient - Home Equipment Needs BSC, gliders/sliders for FWW Transportation Needs at Discharge Private Vehicle
--- NOTE | 2024-04-19 13:08 | CM.DANOTE ---
Initial DCP Assessment Visit Reviewed EMR and team rounds for status updates. Met with pt/spouse at bedside to intoduce self and role, pt was found to be alert/oriented, sitting up in the recliner, expressing pain as well controlled, hoping to d/c home later this afternoon after working with PT on stairs. Pt lives modified independently at baseline with her spouse in their own home in [place]. Her spouse will also transport her home and provide for her care needs post-d/c. Pt is a 58 year-old F post-op day 1 from a L-knee total knee arthroplasty surgery. She has a hx of severe bilateral knee arthritis, as well as overall worsening health. She has a hx of depression, and due to her diabetes has developed kidney issues as a result of chronic NSAID use. She mobilizes with a walker and cane, and has already setup her OP PT for f/u. VETERINARY SURGEON assisted with providing resources for obtaining a bedside commode for home recovery needs. No further needs are identified at this time. Discharge Planning/Care Management CM Discharge Assessment Start: 04/19/24 13:05 Freq: Status: Active Protocol: Document 04/19/24 13:06 [facility] (Rec: 04/19/24 13:08 [facility] [id number]) Discharge Planning Assessment Assigned Naval Designer JAYDEN Crowley Advance Directives? No History Provided By Patient,Significant Other, Medical Record Has Patient been admitted in last 30 No days? Prior Living Arrangements House Household Members spouse Type of transporation used prior to Relies on Others admit Independent with ADL's No: modified independent with a cane or walker Needs Assistance With Home Chores / Shopping Caregiver for Another No DME Already Rented / Owned Elevated Toilet Seat,FWW / Walker,Cane Patient/Family Preference OP PT Therapy Discharge Plan Home Community Services Physical Therapy Transportation Arrangement Spouse Referrals Initiated None needed Whiteboard Updated in Patient Room with Yes name and ext. # of Naval Designer Review Status In Process Please Provide Date Initial DC 04/19/24 Assessment Was Performed Pre-Anesthesia Assessment Start: 04/11/24 11:55 Freq: Status: Active Protocol: Document 04/11/24 11:55 [facility] (Rec: 04/11/24 12:42 [facility] [id number]) Pre-Anesthesia Assessment PAC Comment Phone assess Patient Information Reviewed Via Phone Assessment Assessment Completed With Patient Diagnostic Results BMP/CMP,CBC,EKG Comment Labs/EKG @ [facility] 01/28/24 Primary Care Provider Haylee Galdamez Comment Pre-op 02/08/24 scanned and in surgery folder Seen Specialist in Last 12 Months Yes Specialist Seen Hand Fabric Cutter,Supervisor Photocomposition, Orthopedist Comment Endocrinology 12/18/22 and Nephrology 09/11/23 scanned and in surgery folder Primary Language Macedonian Chief Physical Therapist Required No Height 177.8 cm Weight 159.665 kg Body Mass Index (BMI) 50.5 Hearing Ability Normal Visual Assist Magnifying Glass Dentition Type Teeth, Natural Present Barriers to Learning None Other Aids Yes: CPAP Hx Anesthesia Reactions Yes: SOB, burning sensation in chest, couldn't speak s/p epidural w/2nd preg Hx Family Anesthesia Reaction No Hx Malignant Hyperthermia No Hx Blood Transfusions No Anesthesia Review Requested No Fashion Coordinator No alcohol intake former Alcohol Intake Frequency Other: Stopped when diagnosed with kidney disease Smoking Status Former smoker how long ago did patient quit smoking Quit 2008 Substance Use Type [#R] marijuana Comment Edibles for pain Pain Present Pain Reported Musculoskeletal Symptoms Abnormal Gait,Back Pain, Difficulty Walking,Joint Pain History of Falling (Recent or History of Yes ) Patient is completely paralyzed or No completely immobile Prosthesis or Orthotic Device Cane,Front Wheel Walker Mental Status Oriented to own ability Is patient on oxygen? No Does patient have RAMIREZ/SOB No Hx Sleep Apnea Yes CPAP/BIPAP use prescribed and used routinely Will Bring CPAP/BIPAP DOS Yes Currently Taking a Beta Terrell Yes: Metoprolol Can You Climb a Flight of Stairs Without No SOB Hx Chest Pain No Hx SOB No Hx Syncope or Dizziness No Anti-Coagulant Therapy No Has a Independent Driver No Cardiac Testing No Hx Pacemaker/ICD No Pacemaker Rep Required? No Cardiac Clearance Received No Diet Type At Home Regular Dysphagia No Gastrointestinal Symptoms Constipation,Cramping,Diarrhea Chronic UTI Frequent UTIs Bladder Pattern Frequency,Incontinent,Urgency Urinary Catheter Present No Hx Urinary Self Catheterization No Diabetes Yes: Pt checks blood sugar 4- 5x/day HgbA1C 6.7 Date 01/28/24 Patient No Lactating No Hx Drug Resistant Organism No Presence of External or Internal Medical No: Left shoulder, CPAP, right Devices achilles Received a COVID vaccine? Yes Marital Status Lives With spouse Current Living Arrangements House Number of Floors (Floors) One Floor Support System Spouse Does the Patient Have Assistance After Yes Surgery Patient Discharge Plan Description Return Home Comment Pt advised same day surgery per surgeon Feels Safe in Current Environment Yes Been Physically Hurt or Threatened By a No Person in Current Environment Do you have thoughts of harming yourself None or others? Are you currently considering suicide? No Do you have a plan to hurt yourself or No Plan others? Do You Have Any Spiritual Beliefs That No May Affect Your HC Choices? Do You Have Any Cultural Practices That No May Affect Your HC Choices? Comment [facility] Yazdanism Who Can We Speak to About Patient's Care Family, friends Identifying Code for Release of Patient Declines to issue Information Health Care Proxy/Next of Kin Kamron () Health Care Proxy Emergency Contact Name Linda (sister) Emergency Contact Advance Directives? No Power of Stove Mechanic No PAC Instructions Assistance for 24 hours post- op,Bring CPAP/BIPAP,Diabetes instructions,Do not shave/clip surgical site,Durable medical equipment,Medications to take /avoid,Nasal antibiotic,No ETOH/petroleum product on skin DOS,Ortho class,Pre-surgical wash,Sturdy shoes/comfortable clothes,Do not bring valuables and remove jewelry
--- NOTE | 2024-04-19 13:18 | P.DS_ITS ---
History of Present Illness History of Present Illness Date Patient Seen: 04/19/24 Time Patient Seen: 07:51 Chief complaint: Knee pain Narrative: See progress note Discharge Providers Provider Discharge Date: 04/19/24 Primary care physician: Haylee Galdamez MD Consults: 04/11/24 08:35 Consult to Anesthesiology Routine Comment: Consulting Provider: Anesthesiologist Reason for consultation: Regional block for post operative pain control Has provider been notified: No 04/18/24 07:38 Consult to Anesthesiology Routine Comment: Consulting Provider: Anesthesiologist Reason for consultation: Regional block for post operative pain control Has provider been notified: No 04/18/24 18:50 Consult to Discharge Planning Routine Comment: Consult to Occupational Therapy Evaluate & Treat Comment: Physician Instructions: Evaluate and treat Consult to Physical Therapy Evaluate & Treat Comment: Physician Instructions: postop TKA protocol Discharge provider: Jim Gray PA-C Summary Hospital Course Discharge Diagnosis: Left knee osteoarthritis Anemia due to acute blood loss during surgery Hospital Course: Operative Date/Time/Diagnoses Date of procedure: 04/18/24 Pre-op diagnosis: Left knee osteoarthritis Post-op diagnosis: same Procedure & Clinicians Procedure: Left total knee arthroplasty Placement of lateral distal femoral locking plate for prophylactic fixation for prevention of femoral fracture due to femoral notching in the anterior cortex Same procedure as scheduled: No Surgeon: Wilmar Blackman Heel Pricker: Tracy Branham Anesthesia Type: General and Local Operative Notes Estimated Blood Loss (mL): 600 Procedure in detail: Left Gap-Balanced Hipolito Persona Medial-Congruent Primary Total Knee Arthroplasty Implants: * Size 11 Cruciate Retaining Femoral Component * Size F uncemented Tibial Component * Size 10 Medial Congruent Polyethylene Insert * Unresurfaced Patella * Six hole lateral Alejandro [employer] Nephew distal femoral locking plate * Stainless steel Evos cerclage cable Patient admitted to the hospital for left total knee arthroplasty. Patient consented to the same. Patient underwent left total knee arthroplasty April 18, 2024 with placement of lateral distal femoral locking plate for prophylactic fixation for prevention of femoral fracture due to femoral notching in the anterior cortex. Patient will be weight-bearing as tolerated. Aspirin 81 mg b.i.d. for DVT prophylaxis. No NSAIDs given her kidney issues. Follow up outpatient orthopedic clinic in 2 weeks. Patient will remain on cefadroxil 500 mg b.i.d. for periprosthetic joint infection prophylaxis. Multimodal pain management. Patient will mobilize with physical therapy and discharged home today if safe for home environment. Status at Discharge Cognitive/behavioral status at discharge: at baseline, oriented Functional status at discharge: uses cane/walker Overall status at discharge: patient is progressing back to baseline Exam Vital Signs (past 8 hours): - 04/19/24 05:50 04/19/24 07:00 04/19/24 08:00 Temperature 96.4 F L 96.4 F L Pulse Rate 66 68 Respiratory Rate 20 20 Blood Pressure 120/42 L 114/47 L Pulse Oximetry 98 93 Oxygen Delivery Method Nasal Cannula CPAP Oxygen Flow Rate 1.5 0 Fraction of Inspired Oxygen 28 SaO2/FiO2 Ratio 346 Oxygen Delivery Method Nasal Cannula,CPAP Oxygen Flow Rate 0 Narrative Exam Narrative: See progress note Objective Labs 04/19/24 04:50 Labs: Laboratory Results - last 24 hr 04/19/24 04:50 Hgb 8.6 L Hct 25.9 L PFSH Medical History Recurrent UTI Stage 3b chronic kidney disease COVID-19 virus infection (02/2020) ADHD Bipolar 1 disorder Depression Easy bruisability Osteoarthritis Spinal stenosis History of tumor Arthritis Diabetes IBS (irritable bowel syndrome) HLD (hyperlipidemia) HTN (hypertension) NOHELIA on CPAP Surgical History History of bladder suspension procedure Hx of arthroscopy of right knee Hx of Achilles tendon repair Hx of repair of right rotator cuff Hx of repair of left rotator cuff History of hysterectomy Social History household members: spouse Smoking Status: Former smoker alcohol intake: former Discharge Assessment & Plan Assessment and Plan Assessment: Status post left total knee arthroplasty. Anemia due to acute blood loss during surgery Plan of Treatment: * Weightbearing as tolerated * Aspirin 81 twice per day for DVT prophylaxis * No NSAIDs given kidney issues * Sliding scale insulin given diabetes * Wound check with myself in 2 weeks for staple removal * Cefadroxil 500 mg twice per day for periprosthetic joint infection prophylaxis * Multimodal pain regimen with no IV opioids ordered * Anticipate discharge home tomorrow * Detailed postoperative instructions available at [email or web address] Discharge home today after physical therapy if safe for home environment. Discharge Plan Discharge Plan Patient Disposition: Home Discharge orders & Medications Discharge Orders: Discharge (Order); Ordered 04/19/24 Ordered By: Jim Gray Prescriptions: New acetaminophen 325 mg Tablet 650 mg PO Q6H Qty: 60 0RF polyethylene glycol 3350 17 gram Powder In Packet 17 gm PO DAILY PRN (Reason: Constipation) Qty: 10 0RF aspirin 81 mg Tablet,Delayed Release (Dr/Ec) 81 mg PO BID Qty: 60 0RF Continued fluoxetine 40 mg Capsule 40 mg PO QAM rosuvastatin [Crestor] 40 mg Tablet 40 mg PO BEDTIME PreserVision AREDS-2 250-90-40-1 mg Capsule 2 tab PO QAM hydralazine 10 mg Tablet 20 mg PO BID loperamide 2 mg Capsule 2 mg PO QID Rx Instructions: administer after each loose stool until symptoms controlled; do not exceed 8 mg per 24 hrs furosemide 20 mg Tablet 20 mg PO DAILY metoprolol succinate 25 mg Tablet Extended Release 24 Hr 50 mg PO DAILY oxybutynin chloride 5 mg Tablet 5 mg PO TID calcitriol 0.25 mcg Capsule 0.25 mcg PO DAILY insulin lispro 100 unit/mL Insulin Pen 30 unit SUBCUT TID ezetimibe [Zetia] 10 mg Tablet 10 mg PO DAILY aripiprazole [Abilify] 2 mg Tablet 2 mg PO BID insulin glargine 100 unit/mL (3 mL) Insulin Pen 45 unit SUBCUT BEDTIME Mounjaro 15 mg/0.5 mL Pen Injector 15 mg SUBCUT QWEEK Patient Comments: Injects on Thursday Follow up/Referrals: Haylee Galdamez MD [Primary Care Provider] - Wilmar Blackman MD [Physician] - 05/02/24 2:00 pm ([facility] office in [place]) Diet/Activity/Treatments Diet: Diet as Tolerated Activity: Weightbearing as tolerated. Walk frequently! Cold/Heat Therapy: Ice to knee as needed for pain. Skin/Wound/Dressing Care Report to your healthcare provider any signs of infection, such as:: chills, fever, night sweats, unusual drainage and unusual redness Dressing: May remove SWATHI wrap and cotton padding and shower on 04/20/2024. Leave dressing in place until follow up in office. No bathing or otherwise soaking incision. Call the office if the dressing becomes saturated inside. Visit Report/Discharge Packet Instructions: DI for Knee Replacement Stand Alone Forms: Patient Portal/API, Surgery Discharge Discharge Data Primary Care Provider: Haylee Galdamez Attending Provider: Wilmar Blackman VTE Deep Vein Thrombosis/Pulmonary Embolism Present on Admission: No
--- NOTE | 2024-04-19 13:35 | PT.IPTN ---
Current Diagnoses Unilateral primary osteoarthritis, left knee (04/18/24) Surgery Performed Operation Date: 04/18/24 13:45 Actual Procedures p Total Knee Arthroplasty with distal femur ORIF(Left) - Wilmar Blackman MD Physical Therapy Treatment Note M2 PT-IP Current Condition Start: 04/19/24 12:47 Freq: NEEDED Status: Active Protocol: Document 04/19/24 09:30 AB (Rec: 04/19/24 13:04 AB [id number]) Physical Therapy Current Condition Current Condition Evaluation Date 04/19/24 Treatment Diagnosis s/p L TKA; difficulty in walking Onset Date 04/18/24 M3 PT-IP Subjective Start: 04/19/24 12:47 Freq: NEEDED Status: Active Protocol: Document 04/19/24 13:35 AB (Rec: 04/19/24 14:37 AB [id number]) Subjective Physical Therapy Visit Type Type Treatment Note Visit Start Time 13:35 Visit Stop Time 14:15 Number of BUTTON SEWER HAND Visits 0 Physical Therapy Visit Comments Patient Comments agreeable to do PT Therapy Pain Assessment Pain When Pain Assessed At Rest Location Left Knee Intensity 2 Scale Used Numeric (0 - 10) M4 PT-IP Mobility and Gait Start: 04/19/24 12:47 Freq: NEEDED Status: Active Protocol: Document 04/19/24 13:35 AB (Rec: 04/19/24 14:37 AB [id number]) PT-Bed Mobility Assessment Sit to Supine Sit to Supine Standby Assistance PT-Transfer Assessment Sit to and From Stand Sit to and from Stand Maximum Assistance,1 Person Assistance,Use of Upper Extremities Equipment Transfer Assistive Device Gait Belt,Front Wheeled Walker Orthotic/Prosthetic Devices or Brace: No Transfers Transfer Destination Bed,Bedside Commode Transfer Technique Stand Step Pivot Transfer Ability Level of Assist Minimal Assistance,1 Person Assistance,Use of Upper Extremities Comments Mobility Comments pt sitting on chair. spouse in room. BP: 105/47. caregiver training conducted. educated spouse on how to use safety belt and how to assist pt. spouse was able to put safety belt on pt. pt completed sit to stand max A and max cues. able to stand using FWW for support. c/o lightheadedness needing to sit down. BP checked: 94/40. pt rested. BP checked again: 115 /47. completed sit to stand max A and max cues. requested to use the toilet. bedside commode positioned close to pt . pt was able to take steps using FWW ~ 2 ft min A. spouse assisted. pt needed assistance with brief management. BP after transfers: 133/40 completed sit to stand from the commode max A and max cues . pt requested to go back to bed and was able to take steps to the bed using fWW min A and cues ~ 2 ft. completed sit to supine SBA. positioned pt in bed. BP: 140/40. call light and table placed within reach. ice pack provided. nurse aware. Gait Assessment Gait Gait Assistance Required: Minimum Assistance Distance (Feet) 2 Able to Maintain Weight Bearing Status Yes During Gait Assistive Devices Assistive Device Gait Belt,Front Wheeled Walker Orthotic/Prosthetic Devices or Brace: No Gait Deviations General Gait Pattern Antalgic,Step-to Gait Factors Limiting Gait Function Factors Limiting Gait Function Decreased Activity Tolerance, Decreased Strength,Limited Range of Motion,Pain,Poor Balance,Poor Safety Awareness M5 PT-IP Objective Assessments Start: 04/19/24 12:47 Freq: NEEDED Status: Active Protocol: Document 04/19/24 09:30 AB (Rec: 04/19/24 13:04 AB [id number]) Orientation Orientation/Cognition Level of Alertness Alert Orientation Name,Place,Situation Language Function Ability No Deficits Noted Safety Awareness Decreased Safety Awareness Memory Description No Deficits Noted Strength Lower Extremity Strength Assessment Bilaterally Impaired Hip 3+/5 Knee 3+/5 Sensation Assessment Sensation Gross Sensation WNL Muscle Tone Muscle Tone WNL Yes M6 PT-IP Treatment Start: 04/19/24 12:47 Freq: NEEDED Status: Active Protocol: Document 04/19/24 13:35 AB (Rec: 04/19/24 14:37 AB [id number]) Physical Therapy Treatment Education Education Provided Safety M7 PT-IP Assessment and Plan Start: 04/19/24 12:47 Freq: NEEDED Status: Active Protocol: Document 04/19/24 13:35 AB (Rec: 04/19/24 14:37 AB [id number]) PT Summary Assessment and Plan Potential Rehabilitation Potential Fair Summary Impairments Pain,ROM,Strength,Balance, Coordination,Sensation,Tone, Cognition,Bed Mobility, Transfers,Gait,Activity Tolerance Progress Towards Goals Slow Progress due to Medical Issues,Slow Progress due to Activity Tolerance Assessment Summary pt continues to c/o lightheadedness with mobility and decrease in BP limiting activity tolerance. caregiver training initiated but further training needed. set up another caregiver training tomorrow at 9 am. will continue to assess. Goals Bed Mobility Goal Independent Transfer Goal Independent,Front Wheeled Walker Gait Goal Independent,Front Wheel Walker Gait Distance 150 Other Goals up/down 2 platform steps using FWW CGA Days to Meet Goals 5 Frequency of Treatment Frequency Of Treatment Twice a Day Treatment Plan Physical Therapy Treatment Plan Bed Mobility Training,Transfer Training,Gait Training, Therapeutic Exercise,Balance Retraining,Post Op Education, Discharge Planning,Hot or Cold Pack,Neuromuscular Re-ed, Coordination Retraining,Manual Therapy Other Recommendations and Next Treatment caregiver trainin04/20/24 @ [facility] 9 am Weight Bearing Status Weight Bearing Status Weight Bear as Tolerated Allowed Weight Bearing Amount (enter % LLE WBAT or #) (%) Recommendations To Nursing Amount of Assist Needed 2 Person Assist Discharge Recommendations PT Discharge Recommendations Home with 24/11 Assist Available,Home Health Transportation Needs at Discharge Private Vehicle,Wheelchair/ Cabulance
[2024-04-19 20:00] VITALS: BP 130/40; PULSE 74; RESP 20; TEMP 36.2; O2SAT 94
[2024-04-19 20:23] VITALS: BP 130/40; PULSE 74
[2024-04-19] MEDS: LOPERAMIDE 2 MG CAPSULE PO (20:24)
[2024-04-19] MEDS: ATORVASTATIN 20 MG TABLET 80 MG PO (20:24)
[2024-04-19] MEDS: INSULIN GLARGINE 100 UNIT/ML 3ML PEN 45 UNIT SUBCUT (20:48)
[2024-04-19] MEDS: SODIUM CHLORIDE 0.9% FLUSH 10 ML IV (20:50)
[2024-04-20] MEDS: OXYCODONE IR 10 MG TABLET PO ×6 (01:28→22:27)
[2024-04-20] MEDS: ACETAMINOPHEN 325 MG TABLET 650 MG PO ×4 (01:28→19:01)
[2024-04-20 08:00] VITALS: BP 125/49; PULSE 73; RESP 20; TEMP 36.1; O2SAT 94
--- NOTE | 2024-04-20 08:38 | PM.PNPO.1 ---
Subjective Subjective Date Patient Seen: 04/20/24 Time Patient Seen: 08:38 Interval history: Pt sitting up in bed, feeling well. Tells me she can't go home until her BP stabilizes and she's able to go up and down stairs - she has two steps to get into her house. Exam Vital Signs (past 8 hours): - 04/20/24 08:00 Temperature 97.0 F L Pulse Rate 73 Respiratory Rate 20 Blood Pressure 125/49 L Pulse Oximetry 94 Oxygen Flow Rate 2 Fraction of Inspired Oxygen 28 SaO2/FiO2 Ratio 346 Oxygen Delivery Method Nasal Cannula Oxygen Flow Rate 2 Narrative Exam Narrative: 5/5 strength in hip flexors, quadriceps, hamstrings, PF, DF, EHL on left. Sensation to light touch intact throughout LLE. Calf soft and compressible. SWATHI wrap CDI, KARLO functioning. Objective Labs 04/19/24 04:50 PFSH Medical History Recurrent UTI Stage 3b chronic kidney disease COVID-19 virus infection (02/2020) ADHD Bipolar 1 disorder Depression Easy bruisability Osteoarthritis Spinal stenosis History of tumor Arthritis Diabetes IBS (irritable bowel syndrome) HLD (hyperlipidemia) HTN (hypertension) NOHELIA on CPAP Surgical History History of bladder suspension procedure Hx of arthroscopy of right knee Hx of Achilles tendon repair Hx of repair of right rotator cuff Hx of repair of left rotator cuff History of hysterectomy Social History household members: spouse Smoking Status: Former smoker alcohol intake: former Assessment & Plan Post-op Assessment and plan (1) Total knee replacement status: Assessment and Plan narrative: Hydralazine held yesterday, will hold AM dose and reassess later today. Hopefully, she is feeling better and confident with steps and we can send her home this afternoon. Postoperative Procedures: Procedures Operation Date: 04/18/24 13:45 Actual Procedure Side Surgeon p Total Knee Arthroplasty with distal femur ORIF Left Wilmar Blackman MD Postoperative day: 2 Quality VTE Deep Vein Thrombosis/Pulmonary Embolism Present on Admission: No
[2024-04-20] MEDS: FLUoxetine 20 MG CAPSULE 40 MG PO (09:04)
[2024-04-20] MEDS: FUROSEMIDE 20 MG TABLET PO (09:04)
[2024-04-20] MEDS: VIT C/E/ZN/COPPR/LUTEIN/ZEAXAN CAPSULE 2 CAP PO (09:04)
[2024-04-20] MEDS: ASPIRIN EC 81 MG TABLET PO ×2 (09:04→20:47)
[2024-04-20] MEDS: OXYBUTYNIN 5 MG TABLET PO ×3 (09:04→20:47)
[2024-04-20] MEDS: EZETIMIBE 10 MG TABLET PO (09:05)
[2024-04-20] MEDS: calcitrioL 0.25 MCG CAPSULE PO (09:05)
[2024-04-20] MEDS: DOCUSATE 100 MG CAPSULE PO ×2 (09:05→20:47)
[2024-04-20 09:10] VITALS: BP 125/49; PULSE 73
[2024-04-20] MEDS: INSULIN LISPRO 100 UNIT/ML 3ML VIAL 30 UNIT SUBCUT ×3 (09:14→17:26)
[2024-04-20] MEDS: SODIUM CHLORIDE 0.9% FLUSH 10 ML IV ×2 (09:18→20:47)
--- NOTE | 2024-04-20 10:15 | PT.IPTN ---
Current Diagnoses Unilateral primary osteoarthritis, left knee (04/18/24) Presence of unspecified artificial knee joint (04/18/24) Surgery Performed Operation Date: 04/18/24 13:45 Actual Procedures p Total Knee Arthroplasty with distal femur ORIF(Left) - Wilmar Blackman MD Physical Therapy Treatment Note M2 PT-IP Current Condition Start: 04/19/24 12:47 Freq: NEEDED Status: Active Protocol: Document 04/19/24 09:30 AB (Rec: 04/19/24 13:04 AB [id number]) Physical Therapy Current Condition Current Condition Evaluation Date 04/19/24 Treatment Diagnosis s/p L TKA; difficulty in walking Onset Date 04/18/24 M3 PT-IP Subjective Start: 04/19/24 12:47 Freq: NEEDED Status: Active Protocol: Document 04/20/24 10:49 TS (Rec: 04/20/24 11:05 TS [id number]) Subjective Physical Therapy Visit Type Type Treatment Note Visit Start Time 10:15 Visit Stop Time 10:45 Number of QUARRY WORKER Visits 1 Physical Therapy Visit Comments Patient Comments Pt found resting in bed, she is agreeable to PT. Therapy Pain Assessment Pain When Pain Assessed At Rest Pain Present Pain Present Pain Reported M4 PT-IP Mobility and Gait Start: 04/19/24 12:47 Freq: NEEDED Status: Active Protocol: Document 04/20/24 10:49 TS (Rec: 04/20/24 11:05 TS [id number]) PT-Bed Mobility Assessment Supine to Sit Supine to Sit Minimal Assistance,1 Person Assistance Scooting Scooting to Edge of Bed Standby Assistance PT-Transfer Assessment Sit to and From Stand Sit to and from Stand Maximum Assistance,1 Person Assistance,2 Person Assistance ,Use of Upper Extremities Equipment Transfer Assistive Device Gait Belt,Front Wheeled Walker Orthotic/Prosthetic Devices or Brace: No Transfers Transfer Destination Chair Transfer Technique Stand Step Pivot Transfer Ability Level of Assist Maximum Assistance,1 Person Assistance,Use of Upper Extremities Comments Mobility Comments Pt performs ankle pumps, heel slides and quad sets prior to mobility. BP in supine 123/41. Supine to sit Conchis for LLE support from spouse. She scoots to EOB SBA with extra time to complete task. BP in sitting 141/54. STS from bed MaxA x1, spouse provides cues for STS technique. She ambulates in the room ~15'Conchis with FWW. Pt became lightheaded and required MaxA to sit on EOB. Pt agreeable to transfer to the chair. MaxA x1 for stand pivot to the chair. STS from the chair MaxA x2, BP in standing 107/63. Pt sat back in the chair, all needs met. Gait Assessment Gait Gait Assistance Required: Minimum Assistance Distance (Feet) 15 Able to Maintain Weight Bearing Status Yes During Gait Assistive Devices Assistive Device Gait Belt,Front Wheeled Walker Orthotic/Prosthetic Devices or Brace: No Gait Deviations General Gait Pattern Antalgic,Step-to Gait Factors Limiting Gait Function Factors Limiting Gait Function Decreased Activity Tolerance, Decreased Strength,Limited Range of Motion,Pain,Poor Balance,Poor Safety Awareness PT-Balance Assessment Sitting Balance and Reactions Static Sitting Balance Ability Good Dynamic Sitting Balance Ability Good Standing Balance and Reactions Static Standing Balance Ability Fair Dynamic Standing Balance Ability Poor Device Used FWW M5 PT-IP Objective Assessments Start: 04/19/24 12:47 Freq: NEEDED Status: Active Protocol: Document 04/19/24 09:30 AB (Rec: 04/19/24 13:04 AB [id number]) Orientation Orientation/Cognition Level of Alertness Alert Orientation Name,Place,Situation Language Function Ability No Deficits Noted Safety Awareness Decreased Safety Awareness Memory Description No Deficits Noted Strength Lower Extremity Strength Assessment Bilaterally Impaired Hip 3+/5 Knee 3+/5 Sensation Assessment Sensation Gross Sensation WNL Muscle Tone Muscle Tone WNL Yes M6 PT-IP Treatment Start: 04/19/24 12:47 Freq: NEEDED Status: Active Protocol: Document 04/20/24 10:49 TS (Rec: 04/20/24 11:05 TS [id number]) Physical Therapy Treatment Education Education Provided Safety M7 PT-IP Assessment and Plan Start: 04/19/24 12:47 Freq: NEEDED Status: Active Protocol: Document 04/20/24 10:49 TS (Rec: 04/20/24 11:05 TS [id number]) PT Summary Assessment and Plan Potential Rehabilitation Potential Fair Summary Impairments Pain,ROM,Strength,Balance, Coordination,Sensation,Tone, Cognition,Bed Mobility, Transfers,Gait,Activity Tolerance Progress Towards Goals Slow Progress due to Medical Issues,Slow Progress due to Activity Tolerance Assessment Summary Pt continues to be limited by ongoing hypotension and lightheadedness. She is progressed her gait to ~15' with FWW this session. She quickly becomes lightheaded and requires to sit. Her activity tolerance remains low . Pt is not safe to complete stairs at this time. PT is recommending home with 24/7 assist and HHPT. Goals Bed Mobility Goal Independent Transfer Goal Independent,Front Wheeled Walker Gait Goal Independent,Front Wheel Walker Gait Distance 150 Other Goals up/down 2 platform steps using FWW CGA Days to Meet Goals 5 Frequency of Treatment Frequency Of Treatment Twice a Day Treatment Plan Physical Therapy Treatment Plan Bed Mobility Training,Transfer Training,Gait Training, Therapeutic Exercise,Balance Retraining,Post Op Education, Discharge Planning,Hot or Cold Pack,Neuromuscular Re-ed, Coordination Retraining,Manual Therapy Weight Bearing Status Weight Bearing Status Weight Bear as Tolerated Allowed Weight Bearing Amount (enter % LLE WBAT or #) (%) Recommendations To Nursing Amount of Assist Needed 2 Person Assist Discharge Recommendations PT Discharge Recommendations Home with 24/7 Assist Available,Home Health Transportation Needs at Discharge Private Vehicle,Wheelchair/ Cabulance
--- NOTE | 2024-04-20 13:41 | PT.IPTN ---
Current Diagnoses Unilateral primary osteoarthritis, left knee (04/20/24) Presence of unspecified artificial knee joint (04/20/24) Surgery Performed Operation Date: 04/18/24 13:45 Actual Procedures p Total Knee Arthroplasty with distal femur ORIF(Left) - Wilmar Blackman MD Physical Therapy Treatment Note M2 PT-IP Current Condition Start: 04/19/24 12:47 Freq: NEEDED Status: Active Protocol: Document 04/19/24 09:30 AB (Rec: 04/19/24 13:04 AB [id number]) Physical Therapy Current Condition Current Condition Evaluation Date 04/19/24 Treatment Diagnosis s/p L TKA; difficulty in walking Onset Date 04/18/24 M3 PT-IP Subjective Start: 04/19/24 12:47 Freq: NEEDED Status: Active Protocol: Document 04/20/24 13:41 AB (Rec: 04/20/24 14:32 AB [id number]) Subjective Physical Therapy Visit Type Type Treatment Note Visit Start Time 13:41 Visit Stop Time 14:00 Number of LATHE OPERATOR CONTACT LENS Visits 0 Physical Therapy Visit Comments Patient Comments requesting to go back to bed Therapy Pain Assessment Pain When Pain Assessed At Rest Pain Present Pain Present Pain Reported Location Left Knee Intensity 9 Scale Used Numeric (0 - 10) Pain Management Techniques Apply Cold,Distraction,Re- positioning,Timing of Activity with Medications M4 PT-IP Mobility and Gait Start: 04/19/24 12:47 Freq: NEEDED Status: Active Protocol: Document 04/20/24 13:41 AB (Rec: 04/20/24 14:32 AB [id number]) PT-Bed Mobility Assessment Sit to Supine Sit to Supine Moderate Assistance,Maximum Assistance,1 Person Assistance ,Head of Bed Elevated PT-Transfer Assessment Sit to and From Stand Sit to and from Stand Maximum Assistance,1 Person Assistance,Use of Upper Extremities Equipment Transfer Assistive Device Gait Belt,Front Wheeled Walker Orthotic/Prosthetic Devices or Brace: Yes Transfers Transfer Destination Bed Transfer Technique Stand Step Pivot Transfer Ability Level of Assist Minimal Assistance,1 Person Assistance,Use of Upper Extremities Comments Mobility Comments pt using the bedside commode. NAC and nurse in room. PT assist pt with mobility. pt requesting to go back in bed. BP: 150/48 completed sit to stand from the bedside commode max A x 1 and max cues. NAC assisted with hygiene care and brief management. pt able to take steps to transfer ~ 2 ft to the bed using FWW min A and cues. BP sittin/47. pt refused further ambulation. c/o increase L knee pain. nurse aware. completed sit to supine mod to max A for elevating LLE to bed. positioned pt in bed. call light and table placed within reach. ice pack provided. Left pt with family in room. Gait Assessment Gait Gait Assistance Required: Minimum Assistance Distance (Feet) 2 Able to Maintain Weight Bearing Status Yes During Gait Assistive Devices Assistive Device Gait Belt,Front Wheeled Walker Orthotic/Prosthetic Devices or Brace: No Gait Deviations General Gait Pattern Antalgic,Decreased Stride Length,Decreased Feet Clearance Factors Limiting Gait Function Factors Limiting Gait Function Decreased Activity Tolerance, Decreased Strength,Difficulty Following Directions,Limited Range of Motion,Pain,Poor Balance,Poor Safety Awareness M5 PT-IP Objective Assessments Start: 04/19/24 12:47 Freq: NEEDED Status: Active Protocol: Document 04/19/24 09:30 AB (Rec: 04/19/24 13:04 AB [id number]) Orientation Orientation/Cognition Level of Alertness Alert Orientation Name,Place,Situation Language Function Ability No Deficits Noted Safety Awareness Decreased Safety Awareness Memory Description No Deficits Noted Strength Lower Extremity Strength Assessment Bilaterally Impaired Hip 3+/5 Knee 3+/5 Sensation Assessment Sensation Gross Sensation WNL Muscle Tone Muscle Tone WNL Yes M6 PT-IP Treatment Start: 04/19/24 12:47 Freq: NEEDED Status: Active Protocol: Document 04/20/24 13:41 AB (Rec: 04/20/24 14:32 AB [id number]) Physical Therapy Treatment Education Education Provided Safety M7 PT-IP Assessment and Plan Start: 04/19/24 12:47 Freq: NEEDED Status: Active Protocol: Document 04/20/24 13:41 AB (Rec: 04/20/24 14:32 AB [id number]) PT Summary Assessment and Plan Potential Rehabilitation Potential Fair Summary Impairments Pain,ROM,Strength,Balance, Coordination,Sensation,Tone, Cognition,Bed Mobility, Transfers,Gait,Activity Tolerance Progress Towards Goals Slow Progress due to Pain,Slow Progress due to Medical Issues,Slow Progress due to Activity Tolerance Assessment Summary pt continues to require max A for sit to stand and with decrease activity tolerance affecting level of assistance needed. will continue to assess progress. pt plans to go home and spouse to assist her. caregiver training was initiated yesterday but due to orthostatic hypotension, was not able to do much mobility. Caregiver training scheduled this morning for stair climbing training but pt stated that she got dizzy and lightheaded again and was not able to stairs. will continue to assess progress. Goals Bed Mobility Goal Independent Transfer Goal Independent,Front Wheeled Walker Gait Goal Independent,Front Wheel Walker Gait Distance 150 Other Goals up/down 2 platform steps using FWW CGA Days to Meet Goals 5 Frequency of Treatment Frequency Of Treatment Twice a Day Treatment Plan Physical Therapy Treatment Plan Bed Mobility Training,Transfer Training,Gait Training, Therapeutic Exercise,Balance Retraining,Post Op Education, Discharge Planning,Hot or Cold Pack,Neuromuscular Re-ed, Coordination Retraining,Manual Therapy Weight Bearing Status Weight Bearing Status Weight Bear as Tolerated Allowed Weight Bearing Amount (enter % LLE WBAT or #) (%) Recommendations To Nursing Amount of Assist Needed 2 Person Assist Discharge Recommendations PT Discharge Recommendations Home with 24/ Assist Available,Home Health Transportation Needs at Discharge Private Vehicle,Wheelchair/ Cabulance
--- NOTE | 2024-04-20 13:41 | PT.IPTN ---
Current Diagnoses Unilateral primary osteoarthritis, left knee (04/20/24) Presence of unspecified artificial knee joint (04/20/24) Surgery Performed Operation Date: 04/18/24 13:45 Actual Procedures p Total Knee Arthroplasty with distal femur ORIF(Left) - Wilmar Blackman MD Physical Therapy Treatment Note M2 PT-IP Current Condition Start: 04/19/24 12:47 Freq: NEEDED Status: Active Protocol: Document 04/19/24 09:30 AB (Rec: 04/19/24 13:04 AB [id number]) Physical Therapy Current Condition Current Condition Evaluation Date 04/19/24 Treatment Diagnosis s/p L TKA; difficulty in walking Onset Date 04/18/24 M3 PT-IP Subjective Start: 04/19/24 12:47 Freq: NEEDED Status: Active Protocol: Document 04/20/24 13:41 AB (Rec: 04/20/24 14:32 AB [id number]) Subjective Physical Therapy Visit Type Type Treatment Note Visit Start Time 13:41 Visit Stop Time 14:00 Number of GYRO MECHANIC Visits 0 Physical Therapy Visit Comments Patient Comments requesting to go back to bed Therapy Pain Assessment Pain When Pain Assessed At Rest Pain Present Pain Present Pain Reported Location Left Knee Intensity 9 Scale Used Numeric (0 - 10) Pain Management Techniques Apply Cold,Distraction,Re- positioning,Timing of Activity with Medications M4 PT-IP Mobility and Gait Start: 04/19/24 12:47 Freq: NEEDED Status: Active Protocol: Document 04/20/24 13:41 AB (Rec: 04/20/24 14:32 AB [id number]) PT-Bed Mobility Assessment Sit to Supine Sit to Supine Moderate Assistance,Maximum Assistance,1 Person Assistance ,Head of Bed Elevated PT-Transfer Assessment Sit to and From Stand Sit to and from Stand Maximum Assistance,1 Person Assistance,Use of Upper Extremities Equipment Transfer Assistive Device Gait Belt,Front Wheeled Walker Orthotic/Prosthetic Devices or Brace: Yes Transfers Transfer Destination Bed Transfer Technique Stand Step Pivot Transfer Ability Level of Assist Minimal Assistance,1 Person Assistance,Use of Upper Extremities Comments Mobility Comments pt using the bedside commode. NAC and nurse in room. PT assist pt with mobility. pt requesting to go back in bed. BP: 150/48 completed sit to stand from the bedside commode max A x 1 and max cues. NAC assisted with hygiene care and brief management. pt able to take steps to transfer ~ 2 ft to the bed using FWW min A and cues. BP sittin/47. pt refused further ambulation. c/o increase L knee pain. nurse aware. completed sit to supine mod to max A for elevating LLE to bed. positioned pt in bed. call light and table placed within reach. ice pack provided. Left pt with family in room. Gait Assessment Gait Gait Assistance Required: Minimum Assistance Distance (Feet) 2 Able to Maintain Weight Bearing Status Yes During Gait Assistive Devices Assistive Device Gait Belt,Front Wheeled Walker Orthotic/Prosthetic Devices or Brace: No Gait Deviations General Gait Pattern Antalgic,Decreased Stride Length,Decreased Feet Clearance Factors Limiting Gait Function Factors Limiting Gait Function Decreased Activity Tolerance, Decreased Strength,Difficulty Following Directions,Limited Range of Motion,Pain,Poor Balance,Poor Safety Awareness M5 PT-IP Objective Assessments Start: 04/19/24 12:47 Freq: NEEDED Status: Active Protocol: Document 04/19/24 09:30 AB (Rec: 04/19/24 13:04 AB [id number]) Orientation Orientation/Cognition Level of Alertness Alert Orientation Name,Place,Situation Language Function Ability No Deficits Noted Safety Awareness Decreased Safety Awareness Memory Description No Deficits Noted Strength Lower Extremity Strength Assessment Bilaterally Impaired Hip 3+/5 Knee 3+/5 Sensation Assessment Sensation Gross Sensation WNL Muscle Tone Muscle Tone WNL Yes M6 PT-IP Treatment Start: 04/19/24 12:47 Freq: NEEDED Status: Active Protocol: Document 04/20/24 13:41 AB (Rec: 04/20/24 14:32 AB [id number]) Physical Therapy Treatment Education Education Provided Safety M7 PT-IP Assessment and Plan Start: 04/19/24 12:47 Freq: NEEDED Status: Active Protocol: Document 04/20/24 13:41 AB (Rec: 04/20/24 14:32 AB [id number]) PT Summary Assessment and Plan Potential Rehabilitation Potential Fair Summary Impairments Pain,ROM,Strength,Balance, Coordination,Sensation,Tone, Cognition,Bed Mobility, Transfers,Gait,Activity Tolerance Progress Towards Goals Slow Progress due to Pain,Slow Progress due to Medical Issues,Slow Progress due to Activity Tolerance Assessment Summary pt continues to require max A for sit to stand and with decrease activity tolerance affecting level of assistance needed. will continue to assess progress. pt plans to go home and spouse to assist her. caregiver training was initiated yesterday but due to orthostatic hypotension, was not able to do much mobility. Attempted to do stair climbing training this morning but pt stated that she got dizzy and lightheaded again this morning and was able to stairs. will continue to assess progress. Goals Bed Mobility Goal Independent Transfer Goal Independent,Front Wheeled Walker Gait Goal Independent,Front Wheel Walker Gait Distance 150 Other Goals up/down 2 platform steps using FWW CGA Days to Meet Goals 5 Frequency of Treatment Frequency Of Treatment Twice a Day Treatment Plan Physical Therapy Treatment Plan Bed Mobility Training,Transfer Training,Gait Training, Therapeutic Exercise,Balance Retraining,Post Op Education, Discharge Planning,Hot or Cold Pack,Neuromuscular Re-ed, Coordination Retraining,Manual Therapy Weight Bearing Status Weight Bearing Status Weight Bear as Tolerated Allowed Weight Bearing Amount (enter % LLE WBAT or #) (%) Recommendations To Nursing Amount of Assist Needed 2 Person Assist Discharge Recommendations PT Discharge Recommendations Home with 24/ Assist Available,Home Health Transportation Needs at Discharge Private Vehicle,Wheelchair/ Cabulance
--- NOTE | 2024-04-20 15:33 | OT.IP.TRT ---
Current Diagnoses Unilateral primary osteoarthritis, left knee (04/20/24) Presence of unspecified artificial knee joint (04/20/24) Surgery Performed Operation Date: 04/18/24 13:45 Actual Procedures p Total Knee Arthroplasty with distal femur ORIF(Left) - Wilmar Blackman MD Occupational Therapy Treatment Note M2 OT-IP Current Condition Start: 04/19/24 10:21 Freq: Status: Active Protocol: Document 04/19/24 10:22 [facility] (Rec: 04/19/24 10:37 [facility] [id number]) Occupational Therapy Current Condition Current Condition Evaluation Date 04/19/24 Treatment Diagnosis S/P L TKA Diagnosis Onset Date 04/18/24 M3 OT- IP Subjective and Pain Start: 04/19/24 10:21 Freq: Status: Active Protocol: Document 04/20/24 15:33 [facility] (Rec: 04/20/24 15:42 [facility] [id number]) OT- Subjective Occupational Therapy Visit Type Type Treatment Note Visit Start Time 15:05 Visit Stop Time 15:35 Occupational Therapy Visit Comments Patient Comments Pt agreed to get up to use the bathroom. Pt's in the room to assist and do caregiver training. Patient/Caregiver Goals TO go home OT Pain Assessment Pain When Pain Assessed During Mobility Pain Present Pain Present Pain Reported Location Left Knee Pain Behaviors Facial Grimacing,Holding Area M4 OT- IP ADL's Start: 04/19/24 10:21 Freq: Status: Active Protocol: Document 04/20/24 15:33 [facility] (Rec: 04/20/24 15:42 [facility] [id number]) OT ADL-Dressing General Eval Lower Body Dressing Ability Maximum Assistance Areas Needing Assistance Underpants/Brief Comments OT Dressing Comments Educated to dress the LLE first and take out last. Assist to help get the pad in place. Educated for pt and to communicate well with each other therefore for pt to either focus on her balance or clothing needs. OT ADL-Toileting General Evaluation Toileting Ability Maximum Assistance Areas Needing Assistance Manage Clothing Comments OT Toileting Comments Pt able to walk to the toilet with BSC over the toilet. Pt's able to order a BSC for pt to use at home. M5 OT- IP IADL's Start: 04/19/24 10:21 Freq: Status: Active Protocol: Document 04/19/24 10:22 [facility] (Rec: 04/19/24 10:37 [facility] [id number]) OT-Instrumental Activities of Daily Living Deficits IADL Deficits Identified Deficits Home Safety Awareness Awareness of Need for Assistance at Home Good Awareness Ability to Problem Solve Emergency Able to Problem Solve Situations Medication Management Medication Management No Deficits Identified Money Management Money Management No Deficits Identified Meal Preparation Meal Preparation Comments to assist. Telephone Switchboard Operator Telephone Switchboard Operator Comments to assist. M6 OT- IP Functional Cognition Start: 04/19/24 10:21 Freq: Status: Active Protocol: Document 04/20/24 15:33 [facility] (Rec: 04/20/24 15:42 [facility] [id number]) Cognitive Factors Limiting Selfcare Function Cognitive Comments Cognitive Assessment Comments Pt needing encouragement and cues for safety. M7 OT- IP Mobility and Balance Start: 04/19/24 10:21 Freq: Status: Active Protocol: Document 04/20/24 15:33 [facility] (Rec: 04/20/24 15:42 [facility] [id number]) OT- Bed Mobility Assessment Supine to Sit Supine to Sit Assist Minimal Assistance Scooting Scooting to Edge of Bed Moderate Assistance,1 Person Assistance OT-Transfer Assessment Sit to and From Stand Sit to and from Stand Maximum Assistance,1 Person Assistance Transfers Transfer Ability Minimal Assistance,1 Person Assistance Technique Transfer Destination Bed,Bedside Commode,Chair Transfer Technique Stand Step Pivot Devices Transfer Assistive Devices Gait Belt,Front Wheeled Walker Comments Mobility Comments Pt's able to safely assist pt to stand to the FWW and walk into the bathroom to use the BSC over the toilet. BP no issues this PM . OT- Balance Assessment Sitting Balance and Reactions Static Sitting Balance Ability Good Dynamic Sitting Balance Ability Good Standing Balance and Reactions Static Standing Balance Ability Fair Dynamic Standing Balance Ability Fair M8 OT- IP Objective Assessments Start: 04/19/24 10:21 Freq: Status: Active Protocol: Document 04/19/24 10:22 [facility] (Rec: 04/19/24 10:37 [facility] [id number]) OT Gross Range of Motion Upper Extremity Range of Motion Assessment Within Functional Limits OT Strength Upper Extremity Strength Assessment Within Functional Limits M9 OT- IP Assessment and Plan Start: 04/19/24 10:21 Freq: Status: Active Protocol: Document 04/20/24 15:33 [facility] (Rec: 04/20/24 15:42 [facility] [id number]) OT Summary Assessment and Plan Potential Rehabilitation Potential Good Analytic Complexity at Evaluation Low Summary OT Impairments Pain,Range of Motion,Strength, Balance,Functional Mobility, Grooming,Dressing,Toileting, Bathing,Toilet Transfers, Shower Transfers,Activity Tolerance Progress Towards Goals Progressing Toward Goals Assessment Summary Pt able to get up with her and walk into the bathroom with the FWW and assist. Pt still main barrier is to get into the house. Pt's states has friends that work for the [employer] department that would be able to assist her into the house. At this time may be best to start with home health therapy versus outpt PT pending progress with the steps. Goals Self-Feeding Goal Independent Grooming Goal Independent Dressing Goal Minimal Assistance Toileting Goal Minimal Assistance Bathing Goal Minimal Assistance Toilet Transfer Goal Standby Assistance Shower Transfer Goal Minimal Assistance Patient/Caregiver Education Goal Caregiver Independent Assisting Patient Days to Meet Goals 7 Frequency of Treatment Other frequency 5x/week Treatment Plan OT Treatment Plan ADL Training,Functional Mobility,Patient/Family Education,Discharge Planning Discharge Recommendations OT Discharge Recommendations Home with / Assist Available,Home Health, Outpatient PT Home Equipment Needs BSC, gliders/sliders for FWW Transportation Needs at Discharge Private Vehicle
[2024-04-20 20:00] VITALS: BP 151/56; PULSE 80; RESP 16; TEMP 36.4; O2SAT 92
[2024-04-20] MEDS: ATORVASTATIN 20 MG TABLET 80 MG PO (20:47)
[2024-04-20] MEDS: LOPERAMIDE 2 MG CAPSULE PO (20:47)
[2024-04-20] MEDS: INSULIN LISPRO 100 UNIT/ML 3ML VIAL SUBCUT (21:17)
[2024-04-20] MEDS: INSULIN GLARGINE 100 UNIT/ML 3ML PEN 45 UNIT SUBCUT (21:17)
[2024-04-21] MEDS: OXYCODONE IR 10 MG TABLET PO ×3 (01:09→23:11)
[2024-04-21] MEDS: ACETAMINOPHEN 325 MG TABLET 650 MG PO ×4 (01:10→18:31)
--- NOTE | 2024-04-21 07:49 | PM.PNPO.1 ---
Subjective Subjective Date Patient Seen: 04/21/24 Time Patient Seen: 07:50 Interval history: Patient's pain is [id number]. She denies any nausea or vomiting. No shortness of breath or chest pain. She states she does feel a little lightheaded sitting in the bedside chair. Yesterday she was hypotensive working with physical therapy but is feeling better this morning. Exam Vital Signs (past 8 hours): Fraction of Inspired Oxygen 28 SaO2/FiO2 Ratio 346 Oxygen Delivery Method Nasal Cannula Oxygen Flow Rate 0 Narrative Exam Narrative: 58-year-old female resting comfortably in bedside chair in no apparent distress. Rayo dressing is on and functioning. Scant drainage noted, otherwise intact. Motor functions intact bilateral lower extremities. Sensation grossly intact to light touch bilateral lower extremities. Const General: cooperative and comfortable Nutritional Appearance: obese (BMI 50.5) Orientation: alert Resp Effort & Inspection: normal respiratory effort and able to speak in complete sentences Objective Labs 04/19/24 04:50 PFSH Medical History Recurrent UTI Stage 3b chronic kidney disease COVID-19 virus infection (02/2020) ADHD Bipolar 1 disorder Depression Easy bruisability Osteoarthritis Spinal stenosis History of tumor Arthritis Diabetes IBS (irritable bowel syndrome) HLD (hyperlipidemia) HTN (hypertension) NOHELIA on CPAP Surgical History History of bladder suspension procedure Hx of arthroscopy of right knee Hx of Achilles tendon repair Hx of repair of right rotator cuff Hx of repair of left rotator cuff History of hysterectomy Social History household members: spouse Smoking Status: Former smoker alcohol intake: former Assessment & Plan Post-op Postoperative Procedures: Procedures Operation Date: 04/18/24 13:45 Actual Procedure Side Surgeon p Total Knee Arthroplasty with distal femur ORIF Left Wilmar Blackman MD Postoperative day: 3 Postoperative status narrative: Status post left total knee arthroplasty with distal femur ORIF Hypotension Anemia due to acute blood loss during surgery Postoperative plan narrative: Mobilize with physical therapy, weight-bearing as tolerated Aspirin 81 mg b.i.d. for DVT prophylaxis Sliding scale insulin Cefadroxil 500 mg b.i.d. for periprosthetic joint infection prophylaxis Multimodal pain management Repeat H&H today Disposition, possible home today with home health PT Quality VTE Deep Vein Thrombosis/Pulmonary Embolism Present on Admission: No
[2024-04-21 08:00] VITALS: BP 113/46; PULSE 75; RESP 16; TEMP 36.5; O2SAT 93
[2024-04-21 08:28] LABS: Hematocrit 22.1 % (36-46); Hemoglobin 7.4 g/dL (12.0-16.0)
[2024-04-21] MEDS: EZETIMIBE 10 MG TABLET PO (08:35)
[2024-04-21] MEDS: FLUoxetine 20 MG CAPSULE 40 MG PO (08:35)
[2024-04-21] MEDS: LOPERAMIDE 2 MG CAPSULE PO (08:36)
[2024-04-21] MEDS: calcitrioL 0.25 MCG CAPSULE PO (08:36)
[2024-04-21] MEDS: VIT C/E/ZN/COPPR/LUTEIN/ZEAXAN CAPSULE 2 CAP PO (08:36)
[2024-04-21] MEDS: ASPIRIN EC 81 MG TABLET PO ×2 (08:36→20:46)
[2024-04-21] MEDS: DOCUSATE 100 MG CAPSULE PO ×2 (08:36→20:45)
[2024-04-21] MEDS: OXYBUTYNIN 5 MG TABLET PO ×3 (08:36→20:45)
[2024-04-21] MEDS: INSULIN LISPRO 100 UNIT/ML 3ML VIAL 30 UNIT SUBCUT ×3 (08:38→17:10)
[2024-04-21] MEDS: INSULIN LISPRO 100 UNIT/ML 3ML VIAL SUBCUT ×3 (08:38→17:11)
--- NOTE | 2024-04-21 09:08 | PT.IPTN ---
Current Diagnoses Unilateral primary osteoarthritis, left knee (04/20/24) Presence of unspecified artificial knee joint (04/20/24) Surgery Performed Operation Date: 04/18/24 13:45 Actual Procedures p Total Knee Arthroplasty with distal femur ORIF(Left) - Wilmar Blackman MD Physical Therapy Treatment Note M2 PT-IP Current Condition Start: 04/19/24 12:47 Freq: NEEDED Status: Active Protocol: Document 04/19/24 09:30 AB (Rec: 04/19/24 13:04 AB [id number]) Physical Therapy Current Condition Current Condition Evaluation Date 04/19/24 Treatment Diagnosis s/p L TKA; difficulty in walking Onset Date 04/18/24 M3 PT-IP Subjective Start: 04/19/24 12:47 Freq: NEEDED Status: Active Protocol: Document 04/21/24 09:44 TS (Rec: 04/21/24 10:05 TS [id number]) Subjective Physical Therapy Visit Type Type Treatment Note Visit Start Time 09:08 Visit Stop Time 09:43 Number of UNIVERSITY CONTROLLER Visits 1 Physical Therapy Visit Comments Patient Comments Pt found resting in the chair, she is agreeable to PT. Therapy Pain Assessment Pain When Pain Assessed At Rest Pain Present Pain Present Pain Reported M4 PT-IP Mobility and Gait Start: 04/19/24 12:47 Freq: NEEDED Status: Active Protocol: Document 04/21/24 09:44 TS (Rec: 04/21/24 10:05 TS [id number]) PT-Transfer Assessment Sit to and From Stand Sit to and from Stand Maximum Assistance,1 Person Assistance,Use of Upper Extremities Equipment Transfer Assistive Device Gait Belt,Front Wheeled Walker Orthotic/Prosthetic Devices or Brace: No Comments Mobility Comments Bp in sitting 110/50. STS with FWW MaxA x1, pt demonstrates good recall of technique. She ambulates into the restroom ~ 10' Conchis, pt is incontinent. STS from the toilet MaxA x1. Pt ambulates another ~10' back to the bed. Pt agrees to try stairs. STS from the bed MaxA. She performs step x1 with MaxA x2, pt has difficulty completing step, requires assist to bring RLE to ground. Pt is lightheaded and fatigued, is unable to attempt second step. Chair was brought behind pt. Pt was left in the chair, all needs met. Gait Assessment Gait Gait Assistance Required: Minimum Assistance Distance (Feet) 20 Able to Maintain Weight Bearing Status Yes During Gait Assistive Devices Assistive Device Gait Belt,Front Wheeled Walker Orthotic/Prosthetic Devices or Brace: No Gait Deviations General Gait Pattern Antalgic,Decreased Stride Length,Decreased Feet Clearance Factors Limiting Gait Function Factors Limiting Gait Function Decreased Activity Tolerance, Decreased Strength,Difficulty Following Directions,Limited Range of Motion,Pain,Poor Balance,Poor Safety Awareness Stair Climbing Assessment Evaluation Level of Assist On Stairs Maximal Assistance,2 Person Assistance Devices Stair Climbing Assistive Devices Front Wheel Walker Technique/Endurance Stair Climbing Direction Ascend and Descend Stair Climbing Technique Step to Step Number of Steps Climbed 1 PT-Balance Assessment Sitting Balance and Reactions Static Sitting Balance Ability Good Dynamic Sitting Balance Ability Good Standing Balance and Reactions Static Standing Balance Ability Fair Dynamic Standing Balance Ability Poor Device Used FWW M5 PT-IP Objective Assessments Start: 04/19/24 12:47 Freq: NEEDED Status: Active Protocol: Document 04/19/24 09:30 AB (Rec: 04/19/24 13:04 AB [id number]) Orientation Orientation/Cognition Level of Alertness Alert Orientation Name,Place,Situation Language Function Ability No Deficits Noted Safety Awareness Decreased Safety Awareness Memory Description No Deficits Noted Strength Lower Extremity Strength Assessment Bilaterally Impaired Hip 3+/5 Knee 3+/5 Sensation Assessment Sensation Gross Sensation WNL Muscle Tone Muscle Tone WNL Yes M6 PT-IP Treatment Start: 04/19/24 12:47 Freq: NEEDED Status: Active Protocol: Document 04/21/24 09:44 TS (Rec: 04/21/24 10:05 TS [id number]) Physical Therapy Treatment Education Education Provided Safety M7 PT-IP Assessment and Plan Start: 04/19/24 12:47 Freq: NEEDED Status: Active Protocol: Document 04/21/24 09:44 TS (Rec: 04/21/24 10:05 TS [id number]) PT Summary Assessment and Plan Potential Rehabilitation Potential Fair Summary Impairments Pain,ROM,Strength,Balance, Coordination,Sensation,Tone, Cognition,Bed Mobility, Transfers,Gait,Activity Tolerance Progress Towards Goals Slow Progress due to Pain,Slow Progress due to Medical Issues,Slow Progress due to Activity Tolerance Assessment Summary Pt continues to require MaxA for STS and assistance with gait. She did progress her gait to ~2x10' with use of FWW . She performed steps x1 with FWW and required MaxA x2 to complete. Pt continues to be lightheaded and weakness, was not able to complete stairs x2 . PT is recommending home vs SNF. Unclear if pt will be able to complete steps to get into the house. If she were to go home she may need a stretcher to get in the house. Pt would benefit from SNF to improve strength and functional mobility before d/c home. Goals Bed Mobility Goal Independent Transfer Goal Independent,Front Wheeled Walker Gait Goal Independent,Front Wheel Walker Gait Distance 150 Other Goals up/down 2 platform steps using FWW CGA Days to Meet Goals 5 Frequency of Treatment Frequency Of Treatment Twice a Day Treatment Plan Physical Therapy Treatment Plan Bed Mobility Training,Transfer Training,Gait Training, Therapeutic Exercise,Balance Retraining,Post Op Education, Discharge Planning,Hot or Cold Pack,Neuromuscular Re-ed, Coordination Retraining,Manual Therapy Weight Bearing Status Weight Bearing Status Weight Bear as Tolerated Allowed Weight Bearing Amount (enter % LLE WBAT or #) (%) Recommendations To Nursing Amount of Assist Needed 2 Person Assist Discharge Recommendations PT Discharge Recommendations Home Health,Home vs SNF Transportation Needs at Discharge Private Vehicle,Wheelchair/ Cabulance,Stretcher/Ambulance
--- NOTE | 2024-04-21 10:44 | PC.NURSE ---
Addendum entered by Madyson Campbell R.N. 04/21/24 18:31: Patient will be getting 1u of blood this evening. Just type and crossed, tyleno given and patient comfortable. Original Note: Assess- Patient is alert and oriented x4, she denies pain or discomfort. She has been sitting up in the chair. She is a two person assist and was unable to do the stairs when working with physical therapy. Rayo dressing is intact and green light flashing on motor.
[2024-04-21] MEDS: SODIUM CHLORIDE 0.9% FLUSH 10 ML IV (12:58)
--- NOTE | 2024-04-21 13:15 | PT.IPTN ---
Current Diagnoses Unilateral primary osteoarthritis, left knee (04/20/24) Presence of unspecified artificial knee joint (04/20/24) Surgery Performed Operation Date: 04/18/24 13:45 Actual Procedures p Total Knee Arthroplasty with distal femur ORIF(Left) - Wilmar Blackman MD Physical Therapy Treatment Note M2 PT-IP Current Condition Start: 04/19/24 12:47 Freq: NEEDED Status: Active Protocol: Document 04/19/24 09:30 AB (Rec: 04/19/24 13:04 AB [id number]) Physical Therapy Current Condition Current Condition Evaluation Date 04/19/24 Treatment Diagnosis s/p L TKA; difficulty in walking Onset Date 04/18/24 M3 PT-IP Subjective Start: 04/19/24 12:47 Freq: NEEDED Status: Active Protocol: Document 04/21/24 13:35 TS (Rec: 04/21/24 13:47 TS [id number]) Subjective Physical Therapy Visit Type Type Treatment Note Visit Start Time 13:15 Visit Stop Time 13:35 Number of REAL ESTATE ECONOMIST Visits 2 Physical Therapy Visit Comments Patient Comments Pt found resting in the chair, she is agreeable to PT. Therapy Pain Assessment Pain When Pain Assessed At Rest Pain Present Pain Present Pain Reported M4 PT-IP Mobility and Gait Start: 04/19/24 12:47 Freq: NEEDED Status: Active Protocol: Document 04/21/24 13:35 TS (Rec: 04/21/24 13:47 TS [id number]) PT-Transfer Assessment Sit to and From Stand Sit to and from Stand Maximum Assistance,1 Person Assistance,Use of Upper Extremities Equipment Transfer Assistive Device Gait Belt,Front Wheeled Walker Orthotic/Prosthetic Devices or Brace: No Comments Mobility Comments STS from the chair MaxA with use of FWW. Pt ambulates ~10' in the room CGA. She performs step x1 with use of FWW MaxA x2. Due to fatigue pt unable to complete second step that would be required to get into home. Pt was left back sitting in the chair, all needs met. Gait Assessment Gait Gait Assistance Required: Contact Guard Assist Distance (Feet) 10 Able to Maintain Weight Bearing Status Yes During Gait Assistive Devices Assistive Device Gait Belt,Front Wheeled Walker Orthotic/Prosthetic Devices or Brace: No Gait Deviations General Gait Pattern Antalgic,Decreased Stride Length,Decreased Feet Clearance Factors Limiting Gait Function Factors Limiting Gait Function Decreased Activity Tolerance, Decreased Strength,Difficulty Following Directions,Limited Range of Motion,Pain,Poor Balance,Poor Safety Awareness Stair Climbing Assessment Evaluation Level of Assist On Stairs Maximal Assistance,2 Person Assistance Devices Stair Climbing Assistive Devices Front Wheel Walker Technique/Endurance Stair Climbing Direction Ascend and Descend Stair Climbing Technique Step to Step Number of Steps Climbed 1 PT-Balance Assessment Sitting Balance and Reactions Static Sitting Balance Ability Good Dynamic Sitting Balance Ability Good Standing Balance and Reactions Static Standing Balance Ability Fair Dynamic Standing Balance Ability Poor Device Used FWW M5 PT-IP Objective Assessments Start: 04/19/24 12:47 Freq: NEEDED Status: Active Protocol: Document 04/19/24 09:30 AB (Rec: 04/19/24 13:04 AB [id number]) Orientation Orientation/Cognition Level of Alertness Alert Orientation Name,Place,Situation Language Function Ability No Deficits Noted Safety Awareness Decreased Safety Awareness Memory Description No Deficits Noted Strength Lower Extremity Strength Assessment Bilaterally Impaired Hip 3+/5 Knee 3+/5 Sensation Assessment Sensation Gross Sensation WNL Muscle Tone Muscle Tone WNL Yes M6 PT-IP Treatment Start: 04/19/24 12:47 Freq: NEEDED Status: Active Protocol: Document 04/21/24 13:35 TS (Rec: 04/21/24 13:47 TS [id number]) Physical Therapy Treatment Education Education Provided Safety M7 PT-IP Assessment and Plan Start: 04/19/24 12:47 Freq: NEEDED Status: Active Protocol: Document 04/21/24 13:35 TS (Rec: 04/21/24 13:47 TS [id number]) PT Summary Assessment and Plan Potential Rehabilitation Potential Fair Summary Impairments Pain,ROM,Strength,Balance, Coordination,Sensation,Tone, Cognition,Bed Mobility, Transfers,Gait,Activity Tolerance Progress Towards Goals Slow Progress due to Pain,Slow Progress due to Medical Issues,Slow Progress due to Activity Tolerance Assessment Summary Pt continues to have difficulty with stairs. She completed step x1 with use of FWW MaxA x2. She is unable to complete two steps due to weakness, fatigue and lightheadedness. Pt reports she will have firefighters help her get into the house even if it needs to be on a stretcher. PT continues to recommend SNF vs Home at this time. Goals Bed Mobility Goal Independent Transfer Goal Independent,Front Wheeled Walker Gait Goal Independent,Front Wheel Walker Gait Distance 150 Other Goals up/down 2 platform steps using FWW CGA Days to Meet Goals 5 Frequency of Treatment Frequency Of Treatment Twice a Day Treatment Plan Physical Therapy Treatment Plan Bed Mobility Training,Transfer Training,Gait Training, Therapeutic Exercise,Balance Retraining,Post Op Education, Discharge Planning,Hot or Cold Pack,Neuromuscular Re-ed, Coordination Retraining,Manual Therapy Weight Bearing Status Weight Bearing Status Weight Bear as Tolerated Allowed Weight Bearing Amount (enter % LLE WBAT or #) (%) Recommendations To Nursing Amount of Assist Needed 2 Person Assist Discharge Recommendations PT Discharge Recommendations Home Health,Home vs SNF Transportation Needs at Discharge Private Vehicle,Wheelchair/ Cabulance,Stretcher/Ambulance
--- NOTE | 2024-04-21 13:44 | CM.DPNOTE ---
MARY Cont Met w/patient and her family x2 this afternoon to review the discharge plan. Patient felt originally that she could discharge home w/[facility] and assist from the fire dept to get into her home. Referral placed to [facility] including face sheet, H+P, PT/OT notes, HH order and signed F2F. After the afternoon session with SOFA INSPECTOR; patient/family felt patient would be safest at SNF and request 1) [facility] 2) [facility]. [facility] does not accept patient's [employer] insurance. Cele at [facility] reports they take [employer]. [email or web address], awaiting feedback. Provider updated. CM team following closely for coordination of discharge plan. MATIAS
--- NOTE | 2024-04-21 14:15 | OT.IP.TRT ---
Current Diagnoses Unilateral primary osteoarthritis, left knee (04/20/24) Presence of unspecified artificial knee joint (04/20/24) Surgery Performed Operation Date: 04/18/24 13:45 Actual Procedures p Total Knee Arthroplasty with distal femur ORIF(Left) - Wilmar Blackman MD Occupational Therapy Treatment Note M2 OT-IP Current Condition Start: 04/19/24 10:21 Freq: Status: Active Protocol: Document 04/19/24 10:22 [facility] (Rec: 04/19/24 10:37 [facility] [id number]) Occupational Therapy Current Condition Current Condition Evaluation Date 04/19/24 Treatment Diagnosis S/P L TKA Diagnosis Onset Date 04/18/24 M3 OT- IP Subjective and Pain Start: 04/19/24 10:21 Freq: Status: Active Protocol: Document 04/21/24 14:15 [facility] (Rec: 04/21/24 14:23 [facility] [id number]) OT- Subjective Occupational Therapy Visit Type Type Treatment Note Visit Start Time 13:50 Visit Stop Time 14:15 Occupational Therapy Visit Comments Patient Comments Pt is the shower with COP and her when OT came to assist. Patient/Caregiver Goals Pt open to going to skilled rehab now as has not been able to do the steps at this time. OT Pain Assessment Pain When Pain Assessed During Mobility Pain Present Pain Present Pain Reported Location Left Knee Pain Behaviors Facial Grimacing M4 OT- IP ADL's Start: 04/19/24 10:21 Freq: Status: Active Protocol: Document 04/21/24 14:15 [facility] (Rec: 04/21/24 14:23 [facility] [id number]) OT ADL-Dressing General Eval Lower Body Dressing Ability Maximum Assistance Areas Needing Assistance Underpants/Brief,Socks Comments OT Dressing Comments Pt needing MAXA for LB dressing needs. OT ADL-Toileting Comments OT Toileting Comments Not performed. OT ADL-Bathing Bathing Type Bathing Type Shower General Evaluation Bathing Ability Maximal Assistance Areas Needing Assistance Wash/Dry Back,Wash/Dry Perineal Area,Wash/Dry Lower Extremities Comments OT Bathing Comments Pt needing extensive assist for showering needs. MAX AX 2 to stand so able to assist her with pericare needs. M5 OT- IP IADL's Start: 04/19/24 10:21 Freq: Status: Active Protocol: Document 04/19/24 10:22 [facility] (Rec: 04/19/24 10:37 [facility] [id number]) OT-Instrumental Activities of Daily Living Deficits IADL Deficits Identified Deficits Home Safety Awareness Awareness of Need for Assistance at Home Good Awareness Ability to Problem Solve Emergency Able to Problem Solve Situations Medication Management Medication Management No Deficits Identified Money Management Money Management No Deficits Identified Meal Preparation Meal Preparation Comments to asisst. Battalion Fire Chief Battalion Fire Chief Comments to assist. M6 OT- IP Functional Cognition Start: 04/19/24 10:21 Freq: Status: Active Protocol: Document 04/21/24 14:15 [facility] (Rec: 04/21/24 14:23 [facility] [id number]) Cognitive Factors Limiting Selfcare Function Cognitive Comments Cognitive Assessment Comments Pt know agreeing to go to skilled rehab. M7 OT- IP Mobility and Balance Start: 04/19/24 10:21 Freq: Status: Active Protocol: Document 04/21/24 14:15 [facility] (Rec: 04/21/24 14:23 [facility] [id number]) OT-Transfer Assessment Sit to and From Stand Sit to and from Stand Maximum Assistance,1 Person Assistance,2 Person Assistance Transfers Transfer Ability Moderate Assistance,Maximum Assistance,1 Person Assistance Technique Transfer Destination Bed,Shower Stall Transfer Technique Stand Step Pivot Devices Transfer Assistive Devices Gait Belt,Front Wheeled Walker Comments Mobility Comments MAX AX 2 to stand form lower surfaces and MAX AX 1 from the higher surfaces. Once on her feet CHRISTI to MODA with FWW. MAX AX 1 to help step over the threshold of the shower. At this time, pt's current level too great for her to assist and best to pt to go to skilled rehab. OT- Balance Assessment Sitting Balance and Reactions Static Sitting Balance Ability Good Dynamic Sitting Balance Ability Good Standing Balance and Reactions Static Standing Balance Ability Fair Dynamic Standing Balance Ability Fair M8 OT- IP Objective Assessments Start: 04/19/24 10:21 Freq: Status: Active Protocol: Document 04/19/24 10:22 [facility] (Rec: 04/19/24 10:37 [facility] [id number]) OT Gross Range of Motion Upper Extremity Range of Motion Assessment Within Functional Limits OT Strength Upper Extremity Strength Assessment Within Functional Limits M9 OT- IP Assessment and Plan Start: 04/19/24 10:21 Freq: Status: Active Protocol: Document 04/21/24 14:15 [facility] (Rec: 04/21/24 14:23 [facility] [id number]) OT Summary Assessment and Plan Potential Rehabilitation Potential Good Analytic Complexity at Evaluation Low Summary OT Impairments Pain,Range of Motion,Strength, Balance,Functional Mobility, Grooming,Dressing,Toileting, Bathing,Toilet Transfers, Shower Transfers,Activity Tolerance Progress Towards Goals Slow Progress due to Pain Assessment Summary Pt still needing MAX AX 2 to stand from lower surfaces and to assist for showering at this time. Pt's right knee is arthritic as well making it very difficulty for her to stand from lower surfaces. Pt will greatly benefit from skilled rehab and has a supportive to be able to assist her at home when pt is able to manage the steps with just one person. Goals Self-Feeding Goal Independent Grooming Goal Independent Dressing Goal Minimal Assistance Toileting Goal Minimal Assistance Bathing Goal Minimal Assistance Toilet Transfer Goal Standby Assistance Shower Transfer Goal Minimal Assistance Patient/Caregiver Education Goal Caregiver Independent Assisting Patient Days to Meet Goals 15 Frequency of Treatment Other frequency 5x/week Treatment Plan OT Treatment Plan ADL Training,Functional Mobility,Patient/Family Education,Discharge Planning Discharge Recommendations OT Discharge Recommendations SNF Rehab Transportation Needs at Discharge Wheelchair/Cabulance
[2024-04-21 20:00] VITALS: BP 161/61; PULSE 77; RESP 20; TEMP 36.3; O2SAT 95
[2024-04-21] MEDS: INSULIN GLARGINE 100 UNIT/ML 3ML PEN 45 UNIT SUBCUT (20:44)
[2024-04-21] MEDS: ATORVASTATIN 20 MG TABLET 80 MG PO (20:46)
[2024-04-21 23:18] VITALS: BP 155/52; PULSE 78; RESP 18; TEMP 36.4
[2024-04-21 23:34] VITALS: BP 150/53; PULSE 77; RESP 18; TEMP 36.9
[2024-04-22] MEDS: ACETAMINOPHEN 325 MG TABLET 650 MG PO ×2 (02:02→06:32)
[2024-04-22 02:05] VITALS: BP 153/60; PULSE 74; RESP 18; TEMP 36.7
[2024-04-22 04:45] VITALS: BP 162/49; PULSE 71; RESP 20; TEMP 36.3; O2SAT 93
[2024-04-22 05:20] LABS: Hematocrit 24.6 % (36-46); Hemoglobin 8.4 g/dL (12.0-16.0)
[2024-04-22 08:00] VITALS: BP 153/45; PULSE 75; RESP 19; TEMP 36.2; O2SAT 93
[2024-04-22] MEDS: calcitrioL 0.25 MCG CAPSULE PO (08:15)
[2024-04-22] MEDS: VIT C/E/ZN/COPPR/LUTEIN/ZEAXAN CAPSULE 2 CAP PO (08:15)
[2024-04-22] MEDS: FLUoxetine 20 MG CAPSULE 40 MG PO (08:15)
[2024-04-22] MEDS: METOPROLOL ER 25 MG TABLET 50 MG PO (08:15)
[2024-04-22] MEDS: EZETIMIBE 10 MG TABLET PO (08:15)
[2024-04-22] MEDS: FUROSEMIDE 20 MG TABLET PO (08:15)
[2024-04-22] MEDS: ASPIRIN EC 81 MG TABLET PO (08:15)
[2024-04-22] MEDS: OXYBUTYNIN 5 MG TABLET PO (08:16)
[2024-04-22] MEDS: DOCUSATE 100 MG CAPSULE PO (08:16)
[2024-04-22] MEDS: INSULIN LISPRO 100 UNIT/ML 3ML VIAL 30 UNIT SUBCUT ×2 (08:17→12:38)
[2024-04-22] MEDS: INSULIN LISPRO 100 UNIT/ML 3ML VIAL SUBCUT ×2 (08:18→12:38)
[2024-04-22] MEDS: SODIUM CHLORIDE 0.9% FLUSH 10 ML IV (08:18)
--- NOTE | 2024-04-22 11:08 | CM.DPNOTE ---
DCP Cont [facility] has accepted and [employer] auth submitted for review. If auth is secure patient could discharge to [facility] this afternoon. 1110-No word yet from [facility]. Updated patient and family with information above. Plan: Anticipate discharge to [facility] if SNF auth can be secured through [employer] PPO v discharge home w/family, [facility] ([facility] not take [employer]) and help from the [place] fire dept to get patient into her home. This ANGULAR DEVELOPER following closely. RN updated. JW
--- NOTE | 2024-04-22 11:36 | PC.NURSE ---
Patient up with 2 person assist, walker, and gaitbelt. When she is up and steading, standing with walker she is more of a one person assist. has been helping patient out alot in her room. Awaiting to see if she is going to go to rehab or home. Dressing to knee is cdi, silvina dressing wnl. Resting comfortably in bed with cpap on.
--- NOTE | 2024-04-22 11:50 | PT.IPTN ---
Current Diagnoses Unilateral primary osteoarthritis, left knee (04/20/24) Presence of unspecified artificial knee joint (04/20/24) Surgery Performed Operation Date: 04/18/24 13:45 Actual Procedures p Total Knee Arthroplasty with distal femur ORIF(Left) - Wilmar Blackman MD Physical Therapy Treatment Note M2 PT-IP Current Condition Start: 04/19/24 12:47 Freq: NEEDED Status: Active Protocol: Document 04/19/24 09:30 AB (Rec: 04/19/24 13:04 AB [id number]) Physical Therapy Current Condition Current Condition Evaluation Date 04/19/24 Treatment Diagnosis s/p L TKA; difficulty in walking Onset Date 04/18/24 M3 PT-IP Subjective Start: 04/19/24 12:47 Freq: NEEDED Status: Active Protocol: Document 04/22/24 11:50 AB (Rec: 04/22/24 12:51 AB [id number]) Subjective Physical Therapy Visit Type Type Treatment Note Visit Start Time 11:50 Visit Stop Time 12:15 Number of SCHOOL AIDE Visits 0 Physical Therapy Visit Comments Patient Comments agreeable to do PT Therapy Pain Assessment Pain When Pain Assessed At Rest Pain Present Pain Present Pain Reported Location Left Knee Intensity 5 Scale Used Numeric (0 - 10) Pain Management Techniques Apply Cold,Distraction, Modification of Treatment,Re- positioning,Timing of Activity with Medications M4 PT-IP Mobility and Gait Start: 04/19/24 12:47 Freq: NEEDED Status: Active Protocol: Document 04/22/24 11:50 AB (Rec: 04/22/24 12:51 AB [id number]) PT-Bed Mobility Assessment Supine to Sit Supine to Sit Standby Assistance PT-Transfer Assessment Sit to and From Stand Sit to and from Stand Maximum Assistance,1 Person Assistance,Use of Upper Extremities Equipment Transfer Assistive Device Gait Belt,Front Wheeled Walker Orthotic/Prosthetic Devices or Brace: No Transfers Transfer Destination Toilet Transfer Technique ambulated Transfer Ability Level of Assist Contact Guard Assistance,1 Person Assistance,Use of Upper Extremities Comments Mobility Comments pt supine in bed and agreeable to do PT. BP supine: 159/71. pt completed supine to sit SBA needing increase time to complete task. c/o nausea with initially sitting. BP checked: 163/61. pt sat on EOB for a few minutes. pt requested to use the toilet. completed sit to stand max A and max cues. bed slightly elevated. pt ambulated to the toilet using FWW ~ 20 ft CGA and cues. pt needed assist with brief management. completed sit to stand from the toilet max A and max cues. pt ambulated to the chair usingn FWW CGA and cues. pt stated that she is tired and just wants to rest. pt refused stair climbing and stated that she did not sleep much last night due to her transfusion. positioned pt on the chair. call light and table placed within reach. ice pack provided. Gait Assessment Gait Gait Assistance Required: Contact Guard Assist Distance (Feet) 20 Able to Maintain Weight Bearing Status Yes During Gait Assistive Devices Assistive Device Gait Belt,Front Wheeled Walker Orthotic/Prosthetic Devices or Brace: No Gait Deviations General Gait Pattern Ataxic,Decreased Stride Length ,Decreased Feet Clearance,Step -to Gait Factors Limiting Gait Function Factors Limiting Gait Function Decreased Activity Tolerance, Decreased Strength,Limited Range of Motion,Pain,Poor Balance,Poor Safety Awareness M5 PT-IP Objective Assessments Start: 04/19/24 12:47 Freq: NEEDED Status: Active Protocol: Document 04/19/24 09:30 AB (Rec: 04/19/24 13:04 AB [id number]) Orientation Orientation/Cognition Level of Alertness Alert Orientation Name,Place,Situation Language Function Ability No Deficits Noted Safety Awareness Decreased Safety Awareness Memory Description No Deficits Noted Strength Lower Extremity Strength Assessment Bilaterally Impaired Hip 3+/5 Knee 3+/5 Sensation Assessment Sensation Gross Sensation WNL Muscle Tone Muscle Tone WNL Yes M6 PT-IP Treatment Start: 04/19/24 12:47 Freq: NEEDED Status: Active Protocol: Document 04/22/24 11:50 AB (Rec: 04/22/24 12:51 AB [id number]) Physical Therapy Treatment Education Education Provided Safety M7 PT-IP Assessment and Plan Start: 04/19/24 12:47 Freq: NEEDED Status: Active Protocol: Document 04/22/24 11:50 AB (Rec: 04/22/24 12:51 AB [id number]) PT Summary Assessment and Plan Potential Rehabilitation Potential Fair Summary Impairments Pain,ROM,Strength,Balance, Coordination,Sensation,Tone, Cognition,Bed Mobility, Transfers,Gait,Activity Tolerance Progress Towards Goals Slow Progress due to Pain,Slow Progress due to Medical Issues,Slow Progress due to Activity Tolerance Assessment Summary pt requiring max A for sit to stand and continues to have decrease activity tolerance affecting mobility independence. Recommeding continued 2 person assist for nursing staff due to increase assistance needed for sit<> stand. pt received blood transfusion last night but stated that she is still feeling weak. pt did stair climbing yesterday but was needing max A x 2. pt plans to d/c to SNF to improve overall strength and mobility. Goals Bed Mobility Goal Independent Transfer Goal Independent,Front Wheeled Walker Gait Goal Independent,Front Wheel Walker Gait Distance 150 Other Goals up/down 2 platform steps using FWW CGA Days to Meet Goals 5 Frequency of Treatment Frequency Of Treatment Twice a Day Treatment Plan Physical Therapy Treatment Plan Bed Mobility Training,Transfer Training,Gait Training, Therapeutic Exercise,Balance Retraining,Post Op Education, Discharge Planning,Hot or Cold Pack,Neuromuscular Re-ed, Coordination Retraining,Manual Therapy Weight Bearing Status Weight Bearing Status Weight Bear as Tolerated Allowed Weight Bearing Amount (enter % LLE WBAT or #) (%) Recommendations To Nursing Amount of Assist Needed 2 Person Assist Discharge Recommendations PT Discharge Recommendations Home Health,Home vs SNF Transportation Needs at Discharge Private Vehicle,Wheelchair/ Cabulance,Stretcher/Ambulance
--- NOTE | 2024-04-22 13:30 | OT.IP.TRT ---
Current Diagnoses Unilateral primary osteoarthritis, left knee (04/20/24) Presence of unspecified artificial knee joint (04/20/24) Surgery Performed Operation Date: 04/18/24 13:45 Actual Procedures p Total Knee Arthroplasty with distal femur ORIF(Left) - Wilmar Blackman MD Occupational Therapy Treatment Note M2 OT-IP Current Condition Start: 04/19/24 10:21 Freq: Status: Active Protocol: Document 04/19/24 10:22 [facility] (Rec: 04/19/24 10:37 [facility] [id number]) Occupational Therapy Current Condition Current Condition Evaluation Date 04/19/24 Treatment Diagnosis S/P L TKA Diagnosis Onset Date 04/18/24 M3 OT- IP Subjective and Pain Start: 04/19/24 10:21 Freq: Status: Active Protocol: Document 04/22/24 13:34 [facility] (Rec: 04/22/24 13:42 [facility] [id number]) OT- Subjective Occupational Therapy Visit Type Type Treatment Note Visit Start Time 13:06 Visit Stop Time 13:30 Occupational Therapy Visit Comments Patient Comments Pt agreed to use the bathroom. Patient/Caregiver Goals TO go to skilled rehab. OT Pain Assessment Pain When Pain Assessed At Rest Pain Present Pain Present Pain Reported Location Left Knee Intensity 7 Scale Used Numeric (0 - 10) M4 OT- IP ADL's Start: 04/19/24 10:21 Freq: Status: Active Protocol: Document 04/22/24 13:34 [facility] (Rec: 04/22/24 13:42 [facility] [id number]) OT PBA-Kfip-Nwlehzr General Evaluation Self-Feeding Ability Independent OT ADL-Grooming General Evaluation Areas Needing Assistance Retrieving/Set-up of Grooming Items OT ADL-Dressing General Eval Lower Body Dressing Ability Maximum Assistance Areas Needing Assistance Underpants/Brief,Socks Comments OT Dressing Comments Pt needing MAXA for LB dressing needs. OT ADL-Toileting General Evaluation Toileting Ability Maximum Assistance Areas Needing Assistance Manage Clothing,Perform Perineal Hygiene Comments OT Toileting Comments Assist for brief and hygiene needs. M5 OT- IP IADL's Start: 04/19/24 10:21 Freq: Status: Active Protocol: Document 04/19/24 10:22 [facility] (Rec: 04/19/24 10:37 [facility] [id number]) OT-Instrumental Activities of Daily Living Deficits IADL Deficits Identified Deficits Home Safety Awareness Awareness of Need for Assistance at Home Good Awareness Ability to Problem Solve Emergency Able to Problem Solve Situations Medication Management Medication Management No Deficits Identified Money Management Money Management No Deficits Identified Meal Preparation Meal Preparation Comments to assist. Jig Bore Operator Jig Bore Operator Comments to assist. M6 OT- IP Functional Cognition Start: 04/19/24 10:21 Freq: Status: Active Protocol: Document 04/22/24 13:34 [facility] (Rec: 04/22/24 13:42 [facility] [id number]) Cognitive Factors Limiting Selfcare Function Cognitive Comments Cognitive Assessment Comments Pt still needing some cues to be sure to bend her knees so able to get her feet underneath her better when coming to stand. M7 OT- IP Mobility and Balance Start: 04/19/24 10:21 Freq: Status: Active Protocol: Document 04/22/24 13:34 [facility] (Rec: 04/22/24 13:42 [facility] [id number]) OT-Transfer Assessment Sit to and From Stand Sit to and from Stand Maximum Assistance,1 Person Assistance Transfers Transfer Ability Minimal Assistance,1 Person Assistance Technique Transfer Destination Bed,Bedside Commode,Toilet Transfer Technique Stand Step Pivot Devices Transfer Assistive Devices Gait Belt,Front Wheeled Walker Comments Mobility Comments MAXA X1 to stand from the recliner and CHRISTI with FWW and have one loss of balance while turning back to the toilet. OT- Balance Assessment Sitting Balance and Reactions Static Sitting Balance Ability Good Dynamic Sitting Balance Ability Good Standing Balance and Reactions Static Standing Balance Ability Fair Dynamic Standing Balance Ability Fair M8 OT- IP Objective Assessments Start: 04/19/24 10:21 Freq: Status: Active Protocol: Document 04/19/24 10:22 [facility] (Rec: 04/19/24 10:37 [facility] [id number]) OT Gross Range of Motion Upper Extremity Range of Motion Assessment Within Functional Limits OT Strength Upper Extremity Strength Assessment Within Functional Limits M9 OT- IP Assessment and Plan Start: 04/19/24 10:21 Freq: Status: Active Protocol: Document 04/22/24 13:34 [facility] (Rec: 04/22/24 13:42 [facility] [id number]) OT Summary Assessment and Plan Potential Rehabilitation Potential Good Analytic Complexity at Evaluation Low Summary OT Impairments Pain,Range of Motion,Strength, Balance,Functional Mobility, Grooming,Dressing,Toileting, Bathing,Toilet Transfers, Shower Transfers,Activity Tolerance Progress Towards Goals Progressing Toward Goals Assessment Summary Pt improving to MAX X 1 to stand from lower surfaces and able to walk to and from the bathroom with CHRISTI x1. Pt still needing extensive assist for ADL needs. Pt will greatly benefit from skilled rehab prior to going home. Goals Self-Feeding Goal Independent Grooming Goal Independent Dressing Goal Minimal Assistance Toileting Goal Independent Bathing Goal Standby Assistance Toilet Transfer Goal Independent Shower Transfer Goal Contact Guard Assistance Days to Meet Goals 20 Frequency of Treatment Other frequency 5x/week Treatment Plan OT Treatment Plan ADL Training,Functional Mobility,Patient/Family Education,Discharge Planning Discharge Recommendations OT Discharge Recommendations SNF Rehab Transportation Needs at Discharge Wheelchair/Cabulance
--- NOTE | 2024-04-22 13:57 | P.DS_ITS ---
History of Present Illness History of Present Illness Chief complaint: Knee pain Narrative: Anayeli is a pleasant 58 year old female who is POD#4 s/p left total knee arthroplasty by Dr. Blackman. This morning patient reports she is doing very well, pain is mild-moderate and well controlled with pain medication. She does live at home with her but they feel that discharge to SNF would be the best course of action at this time due to patient's limited mobility and 's need to return to work, she will have some support at home once discharge from the SNF. She does have pain medication at home already for after SNF discharge, she also has outpatient PT scheduled with [facility] in [place]. She has walker, cane, ice machine at home for postop use. She has been able to get up and use the bedside commode without issue, urinating well without issue. She has been working with PT and making progress. Denies fever, chills, chest pain, SOB, nausea, vomiting. Denies any numbness or tingling of the left lower extremity. Operative Date/Time/Diagnoses Date of procedure: 04/18/24 Pre-op diagnosis: Left knee osteoarthritis Post-op diagnosis: same Procedure & Clinicians Procedure: Left total knee arthroplasty Placement of lateral distal femoral locking plate for prophylactic fixation for prevention of femoral fracture due to femoral notching in the anterior cortex Same procedure as scheduled: No Surgeon: Wilmar Blackman Manager Registration: Tracy Branham Anesthesia Type: General and Local Operative Notes Estimated Blood Loss (mL): 600 Procedure in detail: Left Gap-Balanced Hipolito Persona Medial-Congruent Primary Total Knee Arthroplasty Implants: * Size 11 Cruciate Retaining Femoral Component * Size F uncemented Tibial Component * Size 10 Medial Congruent Polyethylene Insert * Unresurfaced Patella * Six hole lateral Alejandro and Nephew distal femoral locking plate * Stainless steel Evos cerclage cable Discharge Providers Provider Date of admission: 04/20/24 09:00 Discharge Date: 04/22/24 Primary care physician: Haylee Galdamez MD Consults: 04/11/24 08:35 Consult to Anesthesiology Routine Comment: Consulting Provider: Anesthesiologist Reason for consultation: Regional block for post operative pain control Has provider been notified: No 04/18/24 07:38 Consult to Anesthesiology Routine Comment: Consulting Provider: Anesthesiologist Reason for consultation: Regional block for post operative pain control Has provider been notified: No 04/18/24 18:50 Consult to Discharge Planning Routine Comment: Consult to Occupational Therapy Evaluate & Treat Comment: Physician Instructions: Evaluate and treat Consult to Physical Therapy Evaluate & Treat Comment: Physician Instructions: postop TKA protocol 04/21/24 13:06 Consult to Home Health Routine Comment: Reason For Exam: Home health services upon discharge Discharge provider: Nguyen Barrios PA-C Summary Hospital Course Discharge Diagnosis: Stable status post left total knee arthroplasty Hospital Course: Hospital course complicated by symptomatic postop hypotension due to intraoperative blood loss and therefore slow return to mobility after surgery. Hypotension now resolved. Exam Vital Signs (past 8 hours): - 04/22/24 08:00 Temperature 97.1 F L Pulse Rate 75 Respiratory Rate 19 Blood Pressure 153/45 H Pulse Oximetry 93 Oxygen Flow Rate 0 Fraction of Inspired Oxygen 28 SaO2/FiO2 Ratio 346 Oxygen Delivery Method Nasal Cannula Oxygen Flow Rate 0 Narrative Exam Narrative: Patient sitting comfortably in bedside chair during our interview today. No acute distress. AOx3. at bedside. Grossly normal alignment of the LLE with mild swelling throughout the LLE. 5/5 strength with DF, PF, EHL bilaterally. Gross sensation intact throughout bilateral lower extremities. Calves soft and non-tender bilaterally. SCDs are on and functioning. Brisk capillary refill, pulses intact. Post-surgical karlo dressing clean, dry and intact over the left knee with scant drainage. Objective Labs 04/22/24 04:34 Labs: Laboratory Results - last 24 hr 04/21/24 04/22/24 18:12 04:34 Hgb 8.4 L Hct 24.6 L Blood Type A Positive Antibody Screen Negative Crossmatch See Detail PFSH Medical History Recurrent UTI Stage 3b chronic kidney disease COVID-19 virus infection (02/2020) ADHD Bipolar 1 disorder Depression Easy bruisability Osteoarthritis Spinal stenosis History of tumor Arthritis Diabetes IBS (irritable bowel syndrome) HLD (hyperlipidemia) HTN (hypertension) NOHELIA on CPAP Surgical History History of bladder suspension procedure Hx of arthroscopy of right knee Hx of Achilles tendon repair Hx of repair of right rotator cuff Hx of repair of left rotator cuff History of hysterectomy Social History household members: spouse Smoking Status: Former smoker alcohol intake: former Discharge Assessment & Plan Assessment and Plan Assessment: Status post left total knee arthroplasty. Anemia due to acute blood loss during surgery Plan of Treatment: * Weightbearing as tolerated, work w/ PT to improve ROM and mobility. * Aspirin 81 twice per day for DVT prophylaxis * No NSAIDs given kidney issues * Sliding scale insulin given diabetes * Wound check with Dr. Blackman in 2 weeks for staple removal. Keep postsurgical dressing intact, clean and dry until 2 week post-op appointment. No soaking the incision site in pools or tubs. No topical ointments or creams to the incision site. * Cefadroxil 500 mg twice per day for periprosthetic joint infection prophylaxis * Multimodal pain regimen with ice to the knee for additional pain control. * Discharge to SNF today. * Detailed postoperative instructions available at [email or web address] * * All patient and her husbands questions were answered, they demonstrates understanding and are in agreement with the plan. Call our office if any questions or concerns arise. Discharge Plan Discharge Plan Patient Disposition: SNF Discharge orders & Medications Prescriptions: New acetaminophen 325 mg Tablet 650 mg PO Q6H Qty: 60 0RF polyethylene glycol 3350 17 gram Powder In Packet 17 gm PO DAILY PRN (Reason: Constipation) Qty: 10 0RF aspirin 81 mg Tablet,Delayed Release (Dr/Ec) 81 mg PO BID Qty: 60 0RF oxycodone 5 mg tablet 5 mg PO Q6H PRN (Reason: pain) Qty: 30 0RF ondansetron 4 mg tablet,disintegrating 4 mg PO Q8H PRN (Reason: nausea and vomiting) Qty: 7 0RF cefadroxil 500 mg capsule 500 mg PO BID 10 Days Qty: 20 0RF Continued fluoxetine 40 mg Capsule 40 mg PO QAM rosuvastatin [Crestor] 40 mg Tablet 40 mg PO BEDTIME PreserVision AREDS-2 250-90-40-1 mg Capsule 2 tab PO QAM hydralazine 10 mg Tablet 20 mg PO BID loperamide 2 mg Capsule 2 mg PO QID Rx Instructions: administer after each loose stool until symptoms controlled; do not exceed 8 mg per 24 hrs furosemide 20 mg Tablet 20 mg PO DAILY metoprolol succinate 25 mg Tablet Extended Release 24 Hr 50 mg PO DAILY oxybutynin chloride 5 mg Tablet 5 mg PO TID calcitriol 0.25 mcg Capsule 0.25 mcg PO DAILY insulin lispro 100 unit/mL Insulin Pen 30 unit SUBCUT TID ezetimibe [Zetia] 10 mg Tablet 10 mg PO DAILY aripiprazole [Abilify] 2 mg Tablet 2 mg PO BID insulin glargine 100 unit/mL (3 mL) Insulin Pen 45 unit SUBCUT BEDTIME Mounjaro 15 mg/0.5 mL Pen Injector 15 mg SUBCUT QWEEK Patient Comments: Injects on Thursday Follow up/Referrals: Haylee Galdamez MD [Primary Care Provider] - Wilmar Blackman MD [Physician] - 05/02/24 2:00 pm ([facility] office in [place]) Diet/Activity/Treatments Diet: Diet as Tolerated Activity: Weightbearing as tolerated. Walk frequently! Cold/Heat Therapy: Ice to knee as needed for pain. Skin/Wound/Dressing Care Report to your healthcare provider any signs of infection, such as:: chills, fever, night sweats, unusual drainage and unusual redness Dressing: May remove SWATHI wrap and cotton padding and shower. Leave KARLO dressing in place until follow up in office. In 5-7 days, batteries will , at which point you can cut off the battery pack and dispose of it but leave the dressing on. No bathing or otherwise soaking incision. Call the office if the dressing becomes saturated inside. [facility] Reason for rehabilitation: Post-operative therapy Rehab type: Physical therapy and Occupational therapy Visit Report/Discharge Packet Instructions: DI for Knee Replacement, DI for Prescription Opioid Use Stand Alone Forms: Patient Portal/API, Surgery Discharge Discharge Data Primary Care Provider: Haylee Galdamez Quality VTE Deep Vein Thrombosis/Pulmonary Embolism Present on Admission: No
--- NOTE | 2024-04-22 14:22 | CM.DPNOTE ---
DC Note Working on discharge coordination throughout the day. Inevitably, [facility] secured the SNF auth through [facility] PPO and arranged for their facility van to pick patient up at 1430. Patient and family appreciative and state agreement with plan. Ortho SAVANNAH Barrios and Dr Blackman updated with above; SAVANNAH completed DC Summary, signed med list, Rx and Dr Blackman signed hospital exempt PASRR. Faxed all ppk to Cele at [facility] at F [phone]. Plan: Discharge to [facility] via wheelchair van, [facility] MATIAS
== END 2024-04-22 14:45 | DRG 470 ==
LOC: OR 12:08 → AC 12:08
PROVIDERS: Physician Assistant Medical; Admitting Provider Orthopaedic Surgery Adult Reconstructive Orthopaedic Surgery; PCP Internal Medicine; Referring Provider Orthopaedic Surgery Adult Reconstructive Orthopaedic Surgery; Visit Provider Orthopaedic Surgery Adult Reconstructive Orthopaedic Surgery
PROC: 0SRD0JZ Replacement of Left Knee Joint with Synthetic Substitute, Open Approach (ICD-10-PCS; CPT 27447; principal; 2024-04-18 13:45)
DX: M17.12 Unilateral primary osteoarthritis, left knee (principal); D62 Acute posthemorrhagic anemia; Z68.43 Body mass index [BMI] 50.0-59.9, adult; E66.01 Morbid (severe) obesity due to excess calories; I95.81 Postprocedural hypotension; F32.A Depression, unspecified; E78.5 Hyperlipidemia, unspecified; E11.22 Type 2 diabetes mellitus with diabetic chronic kidney disease; I12.9 Hypertensive chronic kidney disease with stage 1 through stage 4 chronic kidney disease, or unspecified chronic kidney disease; N18.30 Chronic kidney disease, stage 3 unspecified; G47.33 Obstructive sleep apnea (adult) (pediatric); S86.912D Strain of unspecified muscle(s) and tendon(s) at lower leg level, left leg, subsequent encounter; X58.XXXD Exposure to other specified factors, subsequent encounter; Z79.85 Long-term (current) use of injectable non-insulin antidiabetic drugs; Z87.891 Personal history of nicotine dependence; Z79.4 Long term (current) use of insulin; Z74.2 Need for assistance at home and no other household member able to render care
CPT/HCPCS: 36415; 36430; 73560; 76000; 82962; 85014; 85018; 86850; 86900; 86901; 94762; 97162; 97165; 97530; 97535; C1776; P9016; C1713; J0171; J0330; J0690; J1171; J1815; J2250; J2405; J2704; J3010